=== PATIENT | female | born 1975 | race Asian ===

== ENCOUNTER 2016-03-18 07:32 | Inpatient (IN) | payer MEDICAID ==
[~2016-03-18] VITALS: Ht 154.9 cm; Wt 82.7 kg
[~2016-03-18 07:32] MED LIST: CALC60TA2 PO; FER325 PO; PREN1TAB62 PO
[2016-03-18 07:44] VITALS: Ht 154.9 cm; Wt 82.7 kg
[2016-03-18 07:46] VITALS: BP 127/58; PULSE 80; RESP 20
[2016-03-18 08:41] LABS: ADD UMIC YES; URINE BILIRUBIN (Dip) NEGATIVE (NEGATIVE); URINE BLOOD (Dip) 3+ (NEGATIVE); URINE COLOR LT. YELLOW (YELLOW); URINE GLUCOSE (Dip) NEGATIVE (NEGATIVE); URINE KETONES (Dip) NEGATIVE (NEGATIVE); URINE LEUKOCYTE ESTERASE (Dip) NEGATIVE (NEGATIVE); URINE NITRITE (Dip) NEGATIVE (NEGATIVE); URINE TOTAL PROTEIN (Dip) NEGATIVE (NEGATIVE); URINE UROBILINOGEN (Dip) 0.2 E.U./dL (0.1-1.0)
[2016-03-18 09:35] LABS: BACTERIA,URINE MODERATE
--- NOTE | 2016-03-18 10:32 | RADRPT ---
PROCEDURE: US OB. CLINICAL INDICATION: labor, bleeding TECHNIQUE: Multiple sonographic images of the pelvis were obtained. Transabdominal imaging was pe rformed. Transvaginal images were obtained to assess cervical length. The images were reviewed on a PACS workstation. COMPARISON: No prior studies are available for comparison. FINDINGS: There is a single viable intrauterine gestation. Cardiac activity is present with 150 beats per min yesenia. There is a breech presentation. The cervix is closed and measures 3.3 cm in length. Measurements were made in order to determine age. The results are as follows: BPD = 5.76 cm HC = 21.53 cm AC = 19.91 cm FL = 3.77 cm Gestational age is 23 weeks 3 days and SURINDER is 07/12/2016 by ultrasound criteria. EFW = 600 g +/- 90 g (90 %). The placenta is anterior. There is no evidence for an abruption or placenta previa. IMPRESSION: 1. Single live intrauterine gestation of approximately 23 weeks 3 days by ultrasound criteria. 2. Breech presentation. RPTAT: EE .Anant Oh MD, MD Date Time Electronically viewed and signed by .Anant Oh MD, MD on 03/18/2016 10:31 .R/
[2016-03-18] MEDS: LACTATED RINGER'S 1,000 ML IV* SCH ×2 (11:15→19:33)
[2016-03-18] MEDS ORDERED: TERBUTALINE 1 ML ONE (11:26)
[2016-03-18] MEDS ORDERED: TERBUTALINE 1 MG/ML INJ SC ONE (11:30)
[2016-03-18 12:11] LABS: BASOPHILS % 0.3 % (0.0-2.0); EOSINOPHILS # 0.2 10^3/ul (0.0-0.5); EOSINOPHILS % 1.5 % (0.0-7.0); HEMATOCRIT 37.5 % (37.0-47.0); HEMOGLOBIN 12.7 g/dl (12.0-16.0); LYMPHOCYTES # 1.6 10^3/ul (0.8-2.9); LYMPHOCYTES % 15.8 % (15.0-51.0); MEAN CORPUSCULAR HEMOGLOBIN 30.1 pg (29.0-33.0); MEAN CORPUSCULAR HGB CONC 33.9 g/dl (32.0-37.0); MEAN CORPUSCULAR VOLUME 88.6 fl (82.0-101.0); MEAN PLATELET VOLUME 8.1 fl (7.4-10.4); MONOCYTE # 0.7 10^3/ul (0.3-0.9); MONOCYTES % 7.3 % (0.0-11.0); NEUTROPHIL # 7.6 10^3/ul (1.6-7.5); NEUTROPHILS % 75.1 % (39.0-77.0); PLATELET COUNT 242 10^3/UL (140-440); RED BLOOD COUNT 4.23 10^6/ul (4.20-5.40); RED CELL DISTRIBUTION WIDTH 13.8 % (11.5-14.5); UNCORRECTED WBC 10.1 10^3/ul (4.8-10.8); WHITE BLOOD COUNT 10.1 10^3/ul (4.8-10.8)
[2016-03-18 12:14] LABS: INR 0.92; PROTIME 12.4 Sec (12.2-14.2)
[2016-03-18 12:15] LABS: PARTIAL THROMBOPLASTIN TIME 27.7 Sec (25.0-35.0)
[2016-03-18 12:16] LABS: CONDITION 1
[2016-03-18] MEDS ORDERED: CIPROFLOXACIN 400MG/D5W 200 ML IVPB ONE (12:30)
[2016-03-18] MEDS: NIFEdipine 10 MG CAP PO SCH ×3 (13:00→23:49)
--- NOTE | 2016-03-18 14:03 | TRIAGE ---
OB Triage Datetime Report Generated by CPN: 03/18/2016 14:03 Datetime: 03/18/2016 13:25 Assessment Type: Admission Assessment Maternal Assessment Level of Consciousness: Fully Conscious DTR's/Clonus: DTRs 2+; No Clonus Headache: Denies Blurred Vision: No Respiratory Effort: Unlabored; Regular Rhythm; Equal Expansion Breath Sounds, Left: Clear and Equal Breath Sounds, Right: Clear and Equal Nausea/Vomiting: Denies RUQ Epigastric Pain: Denies Lower Extremities Edema: None Upper Extremities Edema: None Facial Edema: None Fall Risk Assessment History of Falling: (0) No Secondary Diagnosis: (0) No Ambulatory Aid: (0) Bedrest/Nurse Assist IV Therapy: (20) Yes Gait: (0) Normal/Bedrest/Immobile Mental Status: (0) Oriented to Own Ability Fall Score: 20 Fall Risk Score Definition: No Risk: No action required Labor Evaluation Frequency: NONE NOTED Resting Tone [place]: Relaxed Pain Assessment Pain Scale: 0 Pain Presence: None/Denies Pain Type: N/A Pain Assessment Comments: PT STATES FEELING NO PAIN AT THIS TIME Membrane Status: Intact Datetime: 03/18/2016 12:30 Labor Evaluation Frequency: X4 Monitor Mode: External Duration (sec)2399: 40 Quality: Mild Pattern: Normal: <= 5 Contractions in 10 Minutes Resting Tone [place]: Relaxed Pain Assessment Pain Scale: 4 Pain Presence: Intermittent Pain Type: Cramping Pain Location: Back Pain Goal: 0 Pain Relief Measures: Comfort Measures Membrane Status: Intact Datetime: 03/18/2016 11:45 Stage of : Antepartum Assessment Type: Admission Assessment Vaginal Bleeding: Scant Maternal Assessment Level of Consciousness: Fully Conscious Headache: Generalized Blurred Vision: No Respiratory Effort: Unlabored; Regular Rhythm; Equal Expansion Nausea/Vomiting: Denies RUQ Epigastric Pain: Denies Lower Extremities Edema: None Degree: None Upper Extremities Edema: None Degree: None Facial Edema: None Fall Risk Assessment History of Falling: (0) No Secondary Diagnosis: (0) No Ambulatory Aid: (0) Bedrest/Nurse Assist IV Therapy: (0) No Gait: (0) Normal/Bedrest/Immobile Mental Status: (0) Oriented to Own Ability Fall Score: 0 Fall Risk Score Definition: No Risk: No action required Labor Evaluation Frequency: X5 Duration (sec)2399: 40 Quality: Mild Pattern: Normal: <= 5 Contractions in 10 Minutes Resting Tone [place]: Relaxed Pain Assessment Pain Scale: 4 Pain Presence: Intermittent Pain Type: Cramping Pain Location: Back Pain Goal: 0 Membrane Status: Intact Datetime: 03/18/2016 11:30 Labor Evaluation Frequency: IRRITABILITY Monitor Mode: External Duration (sec)2399: 30 Quality: Mild Pattern: Normal: <= 5 Contractions in 10 Minutes Resting Tone [place]: Relaxed Pain Assessment Pain Scale: 4 Pain Presence: Intermittent Pain Type: Cramping Pain Location: Back Pain Goal: 0 Pain Relief Measures: Comfort Measures Datetime: 03/18/2016 11:11 Vaginal Exam Dilatation (cms): 0.0 Station: -3 Exam By: MAY Datetime: 03/18/2016 10:30 Labor Evaluation Frequency: X4 Monitor Mode: External Duration (sec)2399: 40 Quality: Mild Pattern: Normal: <= 5 Contractions in 10 Minutes Resting Tone [place]: Relaxed Pain Assessment Pain Scale: 4 Pain Presence: Intermittent Pain Type: Cramping Pain Location: Back Pain Goal: 0 Pain Relief Measures: Comfort Measures Membrane Status: Intact Datetime: 03/18/2016 09:42 Labor Evaluation Frequency: X3 Duration (sec)2399: 40 Quality: Mild Pattern: Normal: <= 5 Contractions in 10 Minutes Resting Tone [place]: Relaxed Heart Rate FHR Baseline Rate: 140 Monitor Mode: External US FHR Baseline Changes: No Baseline Change Variability: Minimal - Undetectable to <=5 bpm Accelerations: 10X10 Decelerations: None Category: Category I Pain Assessment Pain Scale: 4 Pain Presence: Intermittent Pain Type: Cramping Pain Location: Back Pain Goal: 0 Pain Relief Measures: Comfort Measures Datetime: 03/18/2016 09:12 Labor Evaluation Frequency: IRRITABILITY Monitor Mode: External Duration (sec)2399: 20-40 Quality: Mild Pattern: Normal: <= 5 Contractions in 10 Minutes Resting Tone [place]: Relaxed Heart Rate FHR Baseline Rate: 140 Monitor Mode: External US FHR Baseline Changes: No Baseline Change Variability: Minimal - Undetectable to <=5 bpm Accelerations: 10X10 Decelerations: None Category: Category I Pain Assessment Pain Scale: 4 Pain Presence: Intermittent Pain Type: Cramping Pain Location: Back Pain Goal: 0 Pain Relief Measures: LINK CUTTER Use Datetime: 03/18/2016 08:42 Labor Evaluation Frequency: X2 Monitor Mode: External Duration (sec)2399: 40 Quality: Mild Pattern: Normal: <= 5 Contractions in 10 Minutes Resting Tone [place]: Relaxed Heart Rate FHR Baseline Rate: 140 Monitor Mode: External US FHR Baseline Changes: No Baseline Change Variability: Minimal - Undetectable to <=5 bpm Accelerations: 10X10 Decelerations: None Category: Category I Pain Assessment Pain Scale: 4 Pain Presence: Intermittent Pain Type: Cramping Pain Location: Back Pain Goal: 0 Pain Relief Measures: Comfort Measures Datetime: 03/18/2016 08:12 Labor Evaluation Frequency: 0 Heart Rate FHR Baseline Rate: 145 Monitor Mode: External US FHR Baseline Changes: No Baseline Change Variability: Minimal - Undetectable to <=5 bpm Accelerations: 10X10 Decelerations: None Category: Category I Pain Assessment Pain Scale: 4 Pain Presence: Intermittent Pain Type: Cramping Pain Location: Back Pain Goal: 0 Pain Relief Measures: Comfort Measures Datetime: 03/18/2016 07:51 Time of Arrival: 03/18/2016 11:20 EGA: 22.4 Arrived By: Wheelchair Arrived From: Other Unit in Hospital Datetime: 03/18/2016 07:45 Stage of : OB Triage Assessment Type: Admission Assessment Time of Arrival: 03/18/2016 07:32 Arrived By: Ambulatory Arrived From: Home Chief Complaint: LOW BACK PAIN SINCE YESTERDAY ON AND OFF, BLOOD WHEN SHE URINATES THIS MORNING Movement: Present Contractions: Irregular Time Contractions Began: 03/17/2016 16:00 Rupture of Membranes: Denies Vaginal Discharge: Present Recent Sexual Intercouse: Denies Abdominal Trauma: Not Applicable Patient Complaints: Other Time Provider Notified: 03/18/2016 08:11 Provider Notified: DR. NIETO Initial Plan: EFM, UA Maternal Assessment Level of Consciousness: Fully Conscious Headache: Denies Blurred Vision: No Respiratory Effort: Unlabored; Regular Rhythm; Equal Expansion Nausea/Vomiting: Denies RUQ Epigastric Pain: Denies Lower Extremities Edema: None Degree: None Upper Extremities Edema: None Degree: None Facial Edema: None Fall Risk Assessment History of Falling: (0) No Secondary Diagnosis: (0) No Ambulatory Aid: (0) Bedrest/Nurse Assist IV Therapy: (0) No Gait: (0) Normal/Bedrest/Immobile Mental Status: (0) Oriented to Own Ability Fall Score: 0 Fall Risk Score Definition: No Risk: No action required Monitor Mode: External Pain Assessment Pain Scale: 4 Pain Presence: Intermittent Pain Type: Cramping Pain Location: Back Pain Goal: 0 Pain Relief Measures: Comfort Measures Datetime: 03/18/2016 07:40 Monitor Mode: External Monitor Mode: External US Pain Assessment Pain Scale: 4 Pain Presence: Intermittent Pain Type: Cramping Pain Location: Back Pain Goal: 0 Pain Relief Measures: Comfort Measures
[2016-03-18] MEDS: INDOMETHACIN 25 MG PO SCH ×3 (14:05→23:49)
[2016-03-19] MEDS: LACTATED RINGER'S 1,000 ML IV* SCH ×2 (03:22→10:26)
[2016-03-19] MEDS: NIFEdipine 10 MG CAP PO SCH ×3 (06:04→18:02)
[2016-03-19] MEDS: INDOMETHACIN 25 MG PO SCH ×3 (06:04→18:02)
--- NOTE | 2016-03-19 19:36 | HP ---
Date/Time of Note Date/Time of Note DATE: 03/19/16 TIME: 19:32 OB - History Hx of Present Free Text/Dictation 41 y/o female admitted at 22+ weeks for vaginal bleeding and uterine cramps Last Menstrual Period: Oct 12, 2015 Estimated Due Date: July 18, 2016 : 3 Para: 2 Care: Good Care Ultrasounds: Normal mid trimester US Obstetrical Complications: None Medical Complications: Other (previous C/S X 2 ) Past Family/Social History * Past Medical, Surgical, Family and Obstetric Histories reviewed from chart. Blood Type: B+ Rubella: immune RPR/VDRL: Negative GBS Status: Unknown HBsAG: Negative OB Admission Exam Vital Signs Vital Signs Vital Signs Date Time Temp Pulse Resp B/P Pulse Ox O2 Delivery O2 Flow Rate FiO2 03/18/16 07:46 97.6 80 20 127/58 Room Air Physical Exam HEENT: WNL Heart: Rhythm Normal Lungs: Clear, Equal Abdomen: WNL Extremities: Normal Reflexes: Normal Cervical Dilatation: None Effacement: 0% Membranes: Intact Heart Rate: 150's Accelerations: No Accelerations Decelerations: No Decelerations Varibility: Minimum Contractions on Admission: 6-10 Minutes Apart Date/Time Contractions Began: ? Frequency of Contractions: ? Duration: ? Intensity: Mild Last 72 hours Lab Results CBC & BMP 03/18/16 11:00 OB Assessment/Plan Reason for admission: vaginal bleeding Other Assessment: 22 + weeks gestation Other plan: start on PO Nifedipine + Indocin PREETHI CASTELAN MD Mar 19, 2016 19:36
--- NOTE | 2016-03-19 19:38 | DS ---
Date/Time of Note Date/Time of Note DATE: 03/19/16 TIME: 19:36 Obstetrical Discharge Record Final Diagnosis Final Diagnosis: not delivered Other Final Diagnosis vaginal bleeding at 22 + weeks , possible labor Complications Other (2nd trimester bleeding and uterine cramps ) Condition on Discharge Physical Assessment Voiding: Yes Bowel Movement: Yes Breast: Soft, non-tender, Filling Fundus: Other (gravid ) Abdomen and Incision: gravid Episiotomy: NA Calf Tenderness: No Patient Condition: Good PREETHI CASTELAN MD Mar 19, 2016 19:38
--- NOTE | 2016-03-19 19:39 | QN ---
Documentation Comment patient with considerable decrease in vaginal bleeding: has stopped vaginal bleeding no more uterine cramps will D/C homr on PO nifedipine PREETHI CASTELAN MD Mar 19, 2016 19:39
--- NOTE | 2016-03-19 19:42 | PD.PPDC ---
BUSINESS MANAGEMENT SPECIALIST Discharge Instruction Provider Information Physician Information 41 y/o female admitted with vaginal bleeding and irregular uterine contractions symptoms resolved on PO nifedipine and Indocin Condition Patient Condition: Good Diet Diet: Resume Regular Diet Activity/Restrictions Activity: Bedrest May Shower Restrictions: No Exercising No Lifting Nothing in the Vagina Follow-up Follow-up with Physician: 1, Week/Weeks Return to clinic for Comment: uterine cramps and vaginal bleeding PREETHI CASTELAN MD Mar 19, 2016 19:42
[2016-03-19] MEDS ORDERED: NIFEdipine PO (19:43)
== END 2016-03-19 20:45 | disposition home or self-care (01) | DRG 778 ==
LOC: OBT 07:32 → L-D 07:33 → OBT 11:28 → L-D 11:29 → OBG 13:19
PROVIDERS: ADMIT Obstetrics & Gynecology; ATTEND Obstetrics & Gynecology
DX: O60.03 Preterm labor without delivery, third trimester (principal); O09.522 Supervision of elderly multigravida, second trimester; Z3A.21 21 weeks gestation of pregnancy
CPT/HCPCS: 76815; 76817; 81001; 81003; 85025; 85610; 85730; 86592; 86900; 86901; 96372; G0463; J0744; J3105; J7120

== ENCOUNTER 2016-06-12 19:08 | Outpatient (CLI) | payer MEDICAID ==
[~2016-06-12] VITALS: Ht 154.9 cm; Wt 89.1 kg
[~2016-06-12 19:08] MED LIST changes: -CALC60TA2 PO; -FER325 PO; +NIFEdipine PO
[2016-06-12 19:29] VITALS: Ht 154.9 cm; Wt 89.1 kg
[2016-06-12 19:30] VITALS: BP 139/64; PULSE 85; RESP 18
[2016-06-12 20:40] LABS: ADD SCAN DIFF NO
[2016-06-12 20:42] LABS: BASOPHILS % 0.1 % (0.0-2.0); EOSINOPHILS # 0.1 10^3/ul (0.0-0.5); EOSINOPHILS % 1.7 % (0.0-7.0); HEMATOCRIT 36.8 % (37.0-47.0); LYMPHOCYTES # 1.4 10^3/ul (0.8-2.9); LYMPHOCYTES % 19.7 % (15.0-51.0); MEAN CORPUSCULAR HEMOGLOBIN 29.6 pg (29.0-33.0); MEAN CORPUSCULAR HGB CONC 32.6 g/dl (32.0-37.0); MEAN CORPUSCULAR VOLUME 90.9 fl (82.0-101.0); MEAN PLATELET VOLUME 9.3 fl (7.4-10.4); MONOCYTE # 0.8 10^3/ul (0.3-0.9); MONOCYTES % 11.8 % (0.0-11.0); NEUTROPHIL # 4.5 10^3/ul (1.6-7.5); NEUTROPHILS % 65.3 % (39.0-77.0); PLATELET COUNT 233 10^3/UL (140-415); RED BLOOD COUNT 4.05 10^6/ul (4.20-5.40)
[2016-06-12 20:47] LABS: ADD UMIC YES; URINE BILIRUBIN (Dip) NEGATIVE (NEGATIVE); URINE BLOOD (Dip) TRACE (NEGATIVE); URINE COLOR LT. YELLOW (YELLOW); URINE GLUCOSE (Dip) NEGATIVE (NEGATIVE); URINE KETONES (Dip) NEGATIVE (NEGATIVE); URINE NITRITE (Dip) NEGATIVE (NEGATIVE); URINE TOTAL PROTEIN (Dip) TRACE (NEGATIVE); URINE UROBILINOGEN (Dip) 0.2 E.U./dL (0.1-1.0)
[2016-06-12 20:48] LABS: URINE LEUKOCYTE ESTERASE (Dip) NEGATIVE (NEGATIVE)
[2016-06-12 20:52] LABS: ALBUMIN 3.4 g/dl (3.3-4.9)
[2016-06-12 20:53] LABS: POTASSIUM 3.5 mmol/L (3.5-5.1)
[2016-06-12 20:55] LABS: ALBUMIN/GLOBULIN RATIO 1.03; BILIRUBIN,INDIRECT 0.2 mg/dl (0-1.1); BILIRUBIN,TOTAL 0.2 mg/dl (0.2-1.3); CREATININE 0.53 mg/dl (0.44-1.00); TOTAL PROTEIN 6.7 g/dl (6.1-8.1)
[2016-06-12 20:56] LABS: BACTERIA,URINE RARE; SQUAMOUS EPITHELIAL CELL,UR FEW; URINE RBCS 0-2 /HPF (0)
[2016-06-12 20:56] LABS: URIC ACID 5.4 mg/dl (3.1-7.9)
[2016-06-12 20:57] LABS: CALCIUM 9.1 mg/dl (8.4-10.2)
[2016-06-12 20:59] LABS: INR 0.96; PROTIME 12.8 Sec (12.2-14.2)
[2016-06-12 21:00] LABS: PARTIAL THROMBOPLASTIN TIME 26.4 Sec (25.0-35.0)
--- NOTE | 2016-06-12 21:54 | RADRPT ---
PROCEDURE: OB ultrasound for biophysical profile CLINICAL INDICATION: Biophysical profile. . Hypertension TECHNIQUE: Multiple sonographic images of the pelvis were obtained. Transabdominal view of the gr avid uterus are available for review. The images were reviewed on a PACS workstation. COMPARISON: 03/18/2016 FINDINGS: Single intrauterine gestation. Presentation: Cephalic. Partially visualized placenta: Anterior. breathing movement = 2/2 tone = 2/2 motion = 2/2 HUNTER = 2/2 HUNTER = 11.7 cm heart rate: 163 beats per minute IMPRESSION: Single intrauterine gestation. Biophysical profile 10/07 RPTAT: AADD .Shady Hay MD, MD Date Time Electronically viewed and signed by .Shady Hay MD, on 06/12/2016 21:54 .B/
--- NOTE | 2016-06-12 21:59 | RADRPT ---
PROCEDURE: Obstetrical ultrasound. CLINICAL INDICATION: , evaluation. Pelvic pain. TECHNIQUE: Transabdominal sonographic images of the pelvis are obtained. COMPARISON: 03/18/2016 a FINDINGS: Single intrauterine gestation. There is a cephalic presentation. Measurements were made in order to determine age. The results are as follows: BPD = 8.68 cm HC = 31.23 cm AC = 33.92 cm FL = 6.98 cm Heart rate = 150 beats per minute The placenta is anterior. There is no evidence for an abruption or placenta previa. Ovaries are not visualized. IMPRESSION: Single intrauterine gestation of approximately 36 weeks 0 days by ultrasound criteria. [place] estimated weight = 3006 g; 92 percentile for gestational age of 34 weeks 5 days. RPTAT: AADD .Shady Hay MD, Date Time Electronically viewed and signed by .Shady Hay MD, on 06/12/2016 21:59 .B/
[2016-06-12] MEDS ORDERED: TERBUTALINE 1 MG/ML INJ SC ONE (22:00)
[2016-06-12] MEDS: LACTATED RINGER'S 1,000 ML IV SCH ×3 (22:16→23:27)
--- NOTE | 2016-06-13 00:42 | PN ---
Date/Time of Note Date/Time of Note DATE: 06/13/16 TIME: 00:31 OB Subjective Subjective Subjective increse blood pressure at the clinic and left groin pain forPIH evaluation requested vy Dr SHORE ,NST EFW HUNTER CBC CMP U?A 41 y.o have 2yrs old OB Objective Objective Objective BP 139/64 138/62 PIH lab all WNL HUNTER 11.7 EFW over 3000gm U/A protein trace occ U.c OB Assessment/Plan Reason for admission: other Other Assessment: IUP 35w R/O PIH Other plan: d/s home with routine instructions f/u at clinic RT AMI Mathews MD Jun 13, 2016 00:41
--- NOTE | 2016-06-13 02:01 | TRIAGE ---
OB Triage Datetime Report Generated by CPN: 06/13/2016 02:00 Datetime: 06/13/2016 00:10 Stage of : OB Triage Datetime: 06/12/2016 23:46 Labor Evaluation Frequency: 0 Monitor Mode: External Heart Rate FHR Baseline Rate: 145 Monitor Mode: External US FHR Baseline Changes: No Baseline Change Variability: Moderate 6-25 bpm Accelerations: 15X15 Decelerations: None Category: Category I Datetime: 06/12/2016 23:38 Stage of : OB Triage Datetime: 06/12/2016 23:00 Labor Evaluation Frequency: IRREGULAR Monitor Mode: External Duration (sec)2399: 60-120 Quality: Mild Pattern: Normal: <= 5 Contractions in 10 Minutes Resting Tone [place]um [place]: Relaxed Heart Rate FHR Baseline Rate: 135 Monitor Mode: External US FHR Baseline Changes: No Baseline Change Variability: Moderate 6-25 bpm Accelerations: 15X15 Decelerations: None Category: Category I Datetime: 06/12/2016 22:00 Labor Evaluation Frequency: IRREGULAR Monitor Mode: External Duration (sec)2399: 120 Quality: Mild Pattern: Normal: <= 5 Contractions in 10 Minutes Resting [place]one [place]: Relaxed Heart Rate FHR Baseline Rate: 145 Monitor Mode: External US FHR Baseline Changes: No Baseline Change Variability: Moderate 6-25 bpm Accelerations: 15X15 Decelerations: None Category: Category I Datetime: 06/12/2016 21:00 Stage of : OB Triage Labor Evaluation Frequency: 1 Monitor Mode: External Duration (sec)2399: 100 Quality: Mild Pattern: Normal: <= 5 Contractions in 10 Minutes Resting [place]one [place]: Relaxed Heart Rate FHR Baseline Rate: 135 Monitor Mode: External US FHR Baseline Changes: No Baseline Change Variability: Moderate 6-25 bpm Accelerations: 15X15 Decelerations: None Category: Category I Datetime: 06/12/2016 20:00 Labor Evaluation Frequency: 1 Duration (sec)2399: 60 Pattern: Normal: <= 5 Contractions in 10 Minutes Resting [place]one [place]: Relaxed Heart Rate FHR Baseline Rate: 145 Monitor Mode: External US FHR Baseline Changes: No Baseline Change Variability: Moderate 6-25 bpm Accelerations: 15X15 Decelerations: None Category: Category I Datetime: 06/12/2016 19:36 Stage of : OB Triage Time of Arrival: 06/13/2016 19:05 EGA: 35.0 Arrived By: Wheelchair Arrived From: Office Chief Complaint: PIH SENT FROM THE OFFICE Movement: Present Contractions: Denies/Absent Rupture of Membranes: Denies Vaginal Bleeding: None Vaginal Discharge: Denies Recent Sexual Intercouse: Denies Abdominal Trauma: Not Applicable Patient Complaints: None Time Provider Notified: 06/13/2016 19:52 Provider Notified: DR SHORE Initial Plan: CALL MD [facility] Maternal Assessment Level of Consciousness: Fully Conscious DTR's/Clonus: DTRs 2+; No Clonus Headache: Denies Blurred Vision: No Respiratory Effort: Unlabored; Regular Rhythm; Equal Expansion Breath Sounds, Left: Clear and Equal Breath Sounds, Right: Clear and Equal Nausea/Vomiting: Denies RUQ Epigastric Pain: Denies Lower Extremities Edema: Bilateral Lower Extremities Degree: 1+ Upper Extremities Edema: None Degree: None Facial Edema: None Temperature Route: Oral Fall Risk Assessment History of Falling: (0) No Secondary Diagnosis: (0) No Ambulatory Aid: (0) Bedrest/Nurse Assist IV Therapy: (0) No Gait: (0) Normal/Bedrest/Immobile Mental Status: (0) Oriented to Own Ability Fall Score: 0 Fall Risk Score Definition: No Risk: No action required Monitor Mode: External Monitor Mode: External US Pain Assessment Pain Scale: 6 Pain Presence: Constant Pain Location: Left Groin Datetime: 03/19/2016 20:08 Contraction Comments: TOCO OFF. Datetime: 03/19/2016 20:05 Contraction Comments: DENIES FEELING ANY CRAMPING Monitor Mode: Doppler Comments: FHT HEARD VIA DOPPLER. FHT RANGES 137-155. Datetime: 03/19/2016 20:00 Labor Evaluation Frequency: NONE Monitor Mode: External Contraction Comments: IRRITABILITY NOTED W/ MOVEMENTS Datetime: 03/19/2016 19:58 Assessment Type: Ongoing Assessment Maternal Assessment Level of Consciousness: Fully Conscious DTR's/Clonus: DTRs 2+; No Clonus Headache: Denies Blurred Vision: No Respiratory Effort: Unlabored; Regular Rhythm; Equal Expansion Breath Sounds, Left: Clear and Equal Breath Sounds, Right: Clear and Equal Nausea/Vomiting: Denies RUQ Epigastric Pain: Denies Lower Extremities Edema: None Degree: None Upper Extremities Edema: None Degree: None Facial Edema: None Temperature Route: Oral Fall Risk Assessment History of Falling: (0) No Secondary Diagnosis: (0) No Ambulatory Aid: (0) Bedrest/Nurse Assist IV Therapy: (0) No Gait: (0) Normal/Bedrest/Immobile Mental Status: (0) Oriented to Own Ability Fall Score: 0 Fall Risk Score Definition: No Risk: No action required Pain Assessment Pain Scale: 0 Pain Presence: None/Denies Pain Type: N/A Pain Goal: 0 Pain Assessment Comments: PT DENIES FEELING OF ANY PAIN AT THIS TIME Datetime: 03/19/2016 19:00 Labor Evaluation Frequency: NONE Monitor Mode: External Pattern: Normal: <= 5 Contractions in 10 Minutes Resting Tone [place]: Relaxed Datetime: 03/19/2016 18:02 Labor Evaluation Frequency: NONE Monitor Mode: External Pattern: Normal: <= 5 Contractions in 10 Minutes Resting [place]one [place]: Relaxed Datetime: 03/19/2016 17:00 Labor Evaluation Frequency: NONE Monitor Mode: External Pattern: Normal: <= 5 Contractions in 10 Minutes Resting [place]one [place]: Relaxed Datetime: 03/19/2016 16:07 Monitor Mode: Doppler Comments: FTH HEARD VIA DOPPLER. HEART RATE 145-155 Datetime: 03/19/2016 16:00 Labor Evaluation Frequency: NONE Monitor Mode: External Pattern: Normal: <= 5 Contractions in 10 Minutes Resting [place]one [place]: Relaxed Datetime: 03/19/2016 15:00 Labor Evaluation Frequency: NONE Monitor Mode: External Pattern: Normal: <= 5 Contractions in 10 Minutes Resting [place]one [place]: Relaxed Datetime: 03/19/2016 14:00 Labor Evaluation Frequency: NONE Monitor Mode: External Pattern: Normal: <= 5 Contractions in 10 Minutes Resting [place]one [place]: Relaxed Datetime: 03/19/2016 12:56 Labor Evaluation Frequency: NONE Monitor Mode: External Pattern: Normal: <= 5 Contractions in 10 Minutes Resting [place]one [place]: Relaxed Datetime: 03/19/2016 12:00 Labor Evaluation Frequency: NONE Monitor Mode: External Pattern: Normal: <= 5 Contractions in 10 Minutes Resting [place]one [place]: Relaxed Datetime: 03/19/2016 11:00 Labor Evaluation Frequency: NONE Monitor Mode: External Pattern: Normal: <= 5 Contractions in 10 Minutes Resting [place]one [place]: Relaxed Datetime: 03/19/2016 10:00 Labor Evaluation Frequency: NONE Monitor Mode: External Pattern: Normal: <= 5 Contractions in 10 Minutes Resting [place]one [place]: Relaxed Contraction Comments: PT DENIES FEELING UC'S, CRAMPING OR ABDOMINAL PAIN Datetime: 03/19/2016 09:00 Labor Evaluation Frequency: NONE Monitor Mode: External Pattern: Normal: <= 5 Contractions in 10 Minutes Resting [place]one [place]: Relaxed Datetime: 03/19/2016 08:00 Labor Evaluation Frequency: NONE Monitor Mode: External Pattern: Normal: <= 5 Contractions in 10 Minutes Resting [place]one [place]: Relaxed Datetime: 03/19/2016 06:59 Stage of : Antepartum Labor Evaluation Frequency: 0 Monitor Mode: External Duration (sec)2399: 0 Pattern: Normal: <= 5 Contractions in 10 Minutes Resting [place]one [place]: Relaxed Pain Assessment Pain Scale: 0 Pain Presence: None/Denies Pain Type: N/A Pain Goal: 0 Datetime: 03/19/2016 06:03 Stage of : Antepartum Labor Evaluation Frequency: 0 Monitor Mode: External Duration (sec)2399: 0 Pattern: Normal: <= 5 Contractions in 10 Minutes Resting [place]one [place]: Relaxed Contraction Comments: pt. denies feeling any cramping or UC's. Comments: FHT via doppler. 131-153 bpm Pain Assessment Pain Scale: 0 Pain Presence: None/Denies Pain Type: N/A Pain Goal: 0 Datetime: 03/19/2016 04:00 Labor Evaluation Frequency: 0 Monitor Mode: External Duration (sec)2399: 0 Pattern: Normal: <= 5 Contractions in 10 Minutes Resting [place]one [place]: Relaxed Datetime: 03/19/2016 03:00 Stage of : Antepartum Labor Evaluation Frequency: 0 Monitor Mode: External Duration (sec)2399: 0 Pattern: Normal: <= 5 Contractions in 10 Minutes Resting [place]one [place]: Relaxed Pain Presence: None/Denies Pain Type: N/A Datetime: 03/19/2016 02:00 Stage of : Antepartum Labor Evaluation Frequency: 0 Monitor Mode: External Duration (sec)2399: 0 Pattern: Normal: <= 5 Contractions in 10 Minutes Resting [place]: Relaxed Datetime: 03/19/2016 01:00 Labor Evaluation Frequency: 0 Monitor Mode: External Duration (sec)2399: 0 Pattern: Normal: <= 5 Contractions in 10 Minutes Resting [place]one [place]: Relaxed Pain Assessment Pain Scale: 0 Pain Presence: None/Denies Pain Type: N/A Pain Goal: 0 Datetime: 03/19/2016 00:00 Labor Evaluation Frequency: 0 Monitor Mode: External Duration (sec)2399: 0 Pattern: Normal: <= 5 Contractions in 10 Minutes Resting [place]one [place]: Relaxed Pain Presence: None/Denies Pain Type: N/A Datetime: 03/18/2016 23:48 Pain Presence: None/Denies Pain Type: N/A Datetime: 03/18/2016 23:00 Stage of : Antepartum Labor Evaluation Frequency: 0 Monitor Mode: External Duration (sec)2399: 0 Pattern: Normal: <= 5 Contractions in 10 Minutes Resting [place]one [place]: Relaxed Contraction Comments: uterine irritiability noted. pt. denies feelings any cramping. Pain Presence: None/Denies Pain Type: N/A Datetime: 03/18/2016 22:00 Labor Evaluation Frequency: 0 Monitor Mode: External Duration (sec)2399: 0 Pattern: Normal: <= 5 Contractions in 10 Minutes Resting [place]one [place]: Relaxed Pain Presence: None/Denies Pain Type: N/A Datetime: 03/18/2016 21:00 Labor Evaluation Frequency: 0 Monitor Mode: External Duration (sec)2399: 0 Pattern: Normal: <= 5 Contractions in 10 Minutes Resting [place]one [place]: Relaxed Contraction Comments: pt. denies feeling UC's or cramping. Datetime: 03/18/2016 20:00 Stage of : Antepartum Labor Evaluation Frequency: 0 Monitor Mode: External Duration (sec)2399: 0 Resting Tone [place]: Relaxed Contraction Comments: pt. denies feeling cramping or UC's at this time. Pain Presence: None/Denies Pain Type: N/A Datetime: 03/18/2016 19:23 Assessment Type: Ongoing Assessment Maternal Assessment Level of Consciousness: Fully Conscious DTR's/Clonus: DTRs 2+; No Clonus Headache: Denies Blurred Vision: No Respiratory Effort: Unlabored Nausea/Vomiting: Denies RUQ Epigastric Pain: Denies Lower Extremities Edema: None Degree: None Upper Extremities Edema: None Degree: None Facial Edema: None Fall Risk Assessment History of Falling: (0) No Secondary Diagnosis: (0) No Ambulatory Aid: (0) Bedrest/Nurse Assist IV Therapy: (20) Yes Gait: (0) Normal/Bedrest/Immobile Mental Status: (0) Oriented to Own Ability Fall Score: 20 Fall Risk Score Definition: No Risk: No action required Datetime: 03/18/2016 19:00 Stage of : Antepartum Labor Evaluation Frequency: none noted Monitor Mode: External Resting Tone [place]: Relaxed Pain Presence: None/Denies Datetime: 03/18/2016 18:13 Stage of : Antepartum Labor Evaluation Frequency: none noted Monitor Mode: External Resting Tone [place]: Relaxed Pain Presence: None/Denies Datetime: 03/18/2016 17:00 Stage of : Antepartum Labor Evaluation Frequency: none noted Monitor Mode: External Resting Tone [place]: Relaxed Contraction Comments: pt denies feeling any ucs Pain Presence: None/Denies Datetime: 03/18/2016 16:02 Stage of : Antepartum Labor Evaluation Frequency: x1 Monitor Mode: External Duration (sec)2399: 50 Quality: Mild Pattern: Normal: <= 5 Contractions in 10 Minutes Resting [place]: Relaxed Pain Presence: None/Denies Datetime: 03/18/2016 15:00 Stage of : Antepartum Labor Evaluation Frequency: none noted Monitor Mode: External Resting Tone [place]: Relaxed Pain Assessment Pain Scale: 0 Pain Presence: None/Denies Pain Type: N/A Datetime: 03/18/2016 14:27 Vaginal Exam Amniotic Fluid Amount: Scant Datetime: 03/18/2016 14:07 Stage of : Antepartum Labor Evaluation Frequency: occ Monitor Mode: External Duration (sec)2399: 40-50 Quality: Mild Pattern: Normal: <= 5 Contractions in 10 Minutes Resting [place]one [place]: Relaxed Pain Assessment Pain Scale: 0 Pain Presence: None/Denies Pain Type: N/A Datetime: 03/18/2016 13:25 Fall Score: 20 Fall Risk Score Definition: No Risk: No action required Datetime: 03/18/2016 11:45 Fall Score: 0 Fall Risk Score Definition: No Risk: No action required Datetime: 03/18/2016 07:51 EGA: 22.4 Datetime: 03/18/2016 07:45 Fall Score: 0 Fall Risk Score Definition: No Risk: No action required
[2016-06-13] MEDS ORDERED: LACTATED RINGER'S 1,000 ML IV SCH (22:56)
== END 2016-06-13 00:15 | disposition home or self-care (01) ==
LOC: OBT 19:08 → L-D 19:08 → OBT 06-13 00:15
PROVIDERS: ATTEND Obstetrics & Gynecology
DX: O26.893 Other specified pregnancy related conditions, third trimester (principal); R03.0 Elevated blood-pressure reading, without diagnosis of hypertension; O09.523 Supervision of elderly multigravida, third trimester; Z3A.35 35 weeks gestation of pregnancy
CPT/HCPCS: 36415; 76815; 76818; 80053; 81001; 84560; 85025; 85384; 85610; 85730; 96372; J3105; J7120; Z7500; 81003; G0463

== ENCOUNTER 2016-07-05 08:22 | Inpatient (IN) | payer MEDICAID ==
[~2016-07-05] VITALS: Ht 154.9 cm; Wt 90.5 kg
[~2016-07-05 08:22] MED LIST changes: -NIFEdipine PO
[2016-07-05 09:00] VITALS: BP 143/77; PULSE 76; Ht 154.9 cm; Wt 90.5 kg
[2016-07-05] MEDS ORDERED: CARBOPROST 250 MCG INJ IM PRN ×2 (10:30→21:00)
[2016-07-05] MEDS ORDERED: METHYLERGONOVINE 0.2 MG INJ IM PRN ×2 (10:30→21:00)
[2016-07-05] MEDS ORDERED: MISOPROSTOL 200 MCG TAB PR PRN ×2 (10:30→21:00)
[2016-07-05] MEDS ORDERED: OXYTOCIN 30 UNITS/LR 500 ML IV PRN ×2 (10:30→21:00)
[2016-07-05] MEDS ORDERED: CLINDAMYCIN 900 MG/D5W (PMX) 50 ML IVPB SCH (11:00)
[2016-07-05] MEDS: LACTATED RINGER'S 1,000 ML IV SCH ×3 (11:00→22:04)
[2016-07-05 11:05] LABS: ADD SCAN DIFF NO
[2016-07-05 11:07] LABS: BASOPHILS % 0.1 % (0.0-2.0); EOSINOPHILS # 0.1 10^3/ul (0.0-0.5); EOSINOPHILS % 1.4 % (0.0-7.0); HEMATOCRIT 36.8 % (37.0-47.0); HEMOGLOBIN 12.4 g/dl (12.0-16.0); LYMPHOCYTES # 1.3 10^3/ul (0.8-2.9); LYMPHOCYTES % 19.3 % (15.0-51.0); MEAN CORPUSCULAR HEMOGLOBIN 30.1 pg (29.0-33.0); MEAN CORPUSCULAR HGB CONC 33.7 g/dl (32.0-37.0); MEAN CORPUSCULAR VOLUME 89.3 fl (82.0-101.0); MEAN PLATELET VOLUME 9.5 fl (7.4-10.4); MONOCYTE # 0.8 10^3/ul (0.3-0.9); MONOCYTES % 10.9 % (0.0-11.0); NEUTROPHIL # 4.7 10^3/ul (1.6-7.5); NEUTROPHILS % 67.7 % (39.0-77.0); PLATELET COUNT 214 10^3/UL (140-415); RED BLOOD COUNT 4.12 10^6/ul (4.20-5.40); RED CELL DISTRIBUTION WIDTH 13.9 % (11.5-14.5)
[2016-07-05 11:24] LABS: INR 0.97; PARTIAL THROMBOPLASTIN TIME 27.1 Sec (25.0-35.0); PROTIME 12.9 Sec (12.2-14.2)
[2016-07-05] MEDS: CLINDAMYCIN 900 MG/D5W (PMX) 50 ML IV SCH ×2 (14:44→19:19)
[2016-07-05] MEDS ORDERED: CITRIC ACID/NA CITRATE 30 ML CUP ONE (15:11)
[2016-07-05] MEDS ORDERED: morphine SULFATE/PF (10 MG/10 ML) INJ ONE (15:15)
[2016-07-05] MEDS ORDERED: FENTAnyl 50 MCG/ML VIAL ONE (15:16)
[2016-07-05] MEDS ORDERED: DEXAMETHASONE 4 MG/ML 1 ML INJ ONE (15:20)
[2016-07-05] MEDS ORDERED: ONDANSETRON 4 MG INJ ONE (15:20)
[2016-07-05] MEDS ORDERED: CITRIC ACID/SODIUM CITRATE 15 ML CUP PO ONE (15:30)
[2016-07-05] MEDS ORDERED: CITRIC ACID/NA CITRATE 30 ML CUP PO ONE (15:30)
[2016-07-05] MEDS ORDERED: PHENYLephrine (100 MCG/ML) 5ML SYG ONE (15:53)
[2016-07-05] MEDS ORDERED: DIPHENHYDRAMINE 50 MG INJ IV PRN (16:00)
[2016-07-05] MEDS ORDERED: KETOROLAC 30 MG INJ IV PRN (16:00)
[2016-07-05] MEDS ORDERED: ZOLPIDEM 5 MG TAB PO PRN (16:00)
[2016-07-05] MEDS ORDERED: HYDROmorphONE 1 MG/ML SYG IV PRN ×2 (16:00)
[2016-07-05] MEDS ORDERED: NALOXONE (0.4 MG/ML) INJ IV PRN (16:00)
[2016-07-05] MEDS ORDERED: ONDANSETRON 4 MG INJ IV PRN (16:00)
[2016-07-05] MEDS ORDERED: GENTAMICIN 80 MG/NS (PMX) 50 ML IVPB SCH (16:30)
[2016-07-05] MEDS ORDERED: GENTAMICIN 80 MG INJ IM ONE (16:30)
[2016-07-05] MEDS ORDERED: OXYTOCIN 30 UNITS/LR 500 ML IV ONE ×2 (17:29→20:30)
--- NOTE | 2016-07-05 17:59 | HP ---
Date/Time of Note Date/Time of Note DATE: 07/05/16 TIME: 17:55 OB - History Hx of Present Free Text/Dictation admitted with onset of labor in AM at 38 weeks with Hx of 2 X previous C/S Last Menstrual Period: Oct 12, 2015 Estimated Due Date: July 18, 2016 : 3 Para: 2 Care: Good Care Ultrasounds: Normal mid trimester US Obstetrical Complications: None Medical Complications: None Past Family/Social History * Past Medical, Surgical, Family and Obstetric Histories reviewed from chart. Blood Type: B+ Rubella: immune RPR/VDRL: Negative GBS Status: Negative HBsAG: Negative OB Admission Exam Vital Signs Vital Signs Vital Signs Date Time Temp Pulse Resp B/P Pulse Ox O2 Delivery O2 Flow Rate FiO2 07/05/16 09:00 98.1 76 143/77 Physical Exam HEENT: WNL Heart: Rhythm Normal Lungs: Clear, Equal Abdomen: WNL Extremities: Normal Reflexes: Normal Cervical Dilatation: None Effacement: 0% Station: -3 Membranes: Intact Heart Rate: 130's Accelerations: Accelerations Present Decelerations: No Decelerations Varibility: Moderate Contractions on Admission: < 5 Minutes Apart Date/Time Contractions Began: 07/05/16 0800 AM Frequency of Contractions: q 5 min. Duration: >60 seconds Intensity: Mild Last 72 hours Lab Results CBC & BMP 07/05/16 10:50 OB Assessment/Plan Reason for admission: section Other Assessment: Term gestation previous C/S X 2 desires sterilization Other plan: Repeat C/S + BTL PREETHI CASTELAN MD July 05, 2016 17:59
--- NOTE | 2016-07-05 18:04 | OPR ---
Operative Report Planned Procedure Procedure date July 05, 2016 Procedure(s) reepat C/S + BTL Performed by: PREETHI CASTELAN MD Assisting provider: ERICH CHIU MD Anesthesiologist: NILDA WRIGHT Pre-procedure diagnosis term gestation previous C/S X 2 desires sterilization Anesthesia Type: spinal Procedure Description Under satisfactory anaesthesia a Pfannenstiel incision was made two fingerbreadth above and parallel to the symphysis of pubis around the previous scar and previous scar was removed Incision was extended laterally to the border of the Recti muscles on either sides. Incision was carried down with sharp and blunt dissection until fascia was reached. Anterior Recti muscle fascia was incised in mid portion and incision extended laterally to the border of skin incision. Fascia was mobilized from muscle superiorly and Recti muscles were from midline using sharp and blunt dissection. Peritoneum was visualized; Avoiding bowel and bladder it was incised . Incision was extended superiorly and inferiorly. Bladder blade was placed. Posterior peritoneum covering the lower segment of the uterus and lower segment of the uterus were incised.Low transverse uterine incision was made on lower segment of the uterus. Incision extended laterally to the border of Round Lig. on either sides and baby was delivered from OT. position . Amniotic fluid appeared clear. Cord blood was obtained and cord had 3 vessels . Placenta was delivered spontaneously and appeared intact and complete. Intrauterine cavity was rubbed with a laparotomy sponge. Uterine incision was closed in 2 layers using running stitches of No1 Monocryl. Hemostasis appeared secure. Ovaries and Fallopian tubes were within normal limits. Bilateral Tubal Ligation was performed by following procedure: R fallopian tube was raised in mid portion; a Carmela clamp was placed below the fimbriae extending to proximal portion of the fallopian tube. Another clamp was placed parallel to the first and after incising the fallopian tube the stump was sutured using 0 Vicryl stitch. Hemostasis was secure . Same procedure was done on fallopian tube on the opposite side. Hemostasis appeared to be secure on ligated sites of either fallopian tubes. 2 X broad ligament hematoma were repaired with combination of fesw stitches including 0 Vicryl, 2 0 Vicryl and 0 Chromic. Hemostasis became secure. Announcing needle, lap sponge and instrument count to be correct abdomen was closed in layers as follows: Peritoneum and Recti muscles with running stitches of 20 Vicryl. Fascia with running stitch of No 1 PDS. Subcutaneous tissue with running stitches of 20 Chromic and skin was closed using mingo. Patient tolerated the procedure well and was transferred to [facility] in good condition. Post-Procedure Post-procedure diagnosis S/P C/S + BTL Findings: Live Baby normal R and L fallopian tubes Specimen removed: Yes Specimen description segments of R and L fallopian tubes Complications: None Pt Condition post procedure: stable Disposition: PACU Physician Certification I, the undersigned physician, hereby certify that I have discussed the procedure described in this consent form with this patient (or the patient's legal safety representative), including: * The risk and benefits of the procedure; * Any adverse reactions that may reasonably be expected to occur; * Any alternative efficacious methods of treatment which may be medically viable ; * The potential problems that may occur during recuperation; * Potential for blood transfusion and associated risks/benefits; and * Any research or economic interest I may have regarding this treatment. I further certify that the patient/legally responsible person was encouraged to ask question and that all questions were answered. PREETHI CASTELAN MD July 05, 2016 18:04
[2016-07-05] MEDS ORDERED: NA PHOSPHATE/BIPHOS 133 ML ENEMA PR PRN ×2 (21:00→21:30)
[2016-07-05] MEDS ORDERED: ACETAMINOPHEN/CODEINE #3 TAB PO PRN (21:00)
[2016-07-05] MEDS ORDERED: LANOLIN 7 GM TUBE TOP PRN (21:00)
[2016-07-05 21:15] VITALS: BP 140/64; PULSE 80; RESP 18
[2016-07-05 21:30] VITALS: BP 132/78; PULSE 78; RESP 19
[2016-07-05] MEDS: GENTAMICIN 80 MG/NS (PMX) 50 ML IVPB SCH (21:59)
[2016-07-05 22:00] VITALS: BP 130/76; PULSE 80; RESP 18
[2016-07-05] MEDS: IBUPROFEN 800 MG TAB PO SCH (22:00)
[2016-07-05] MEDS: SENNA/DOCUSATE NA (8.6MG/50MG) TAB PO SCH (22:04)
[2016-07-05 23:00] VITALS: BP 126/78; PULSE 78; RESP 18
[2016-07-06] MEDS: CLINDAMYCIN 900 MG/D5W (PMX) 50 ML IVPB SCH ×5 (00:30→23:49)
[2016-07-06 01:10] VITALS: BP 120/60; PULSE 80; RESP 18
[2016-07-06] MEDS: LACTATED RINGER'S 1,000 ML IV SCH ×6 (01:28→23:00)
[2016-07-06 04:50] VITALS: BP 130/78; PULSE 78; RESP 18
[2016-07-06] MEDS: GENTAMICIN 80 MG/NS (PMX) 50 ML IVPB SCH ×3 (05:07→21:46)
[2016-07-06] MEDS: IBUPROFEN 800 MG TAB PO SCH ×3 (06:00→22:00)
[2016-07-06] MEDS ORDERED: MISOPROSTOL 200 MCG TAB PR PRN (07:00)
[2016-07-06] MEDS ORDERED: METHYLERGONOVINE 0.2 MG INJ IM PRN (07:00)
[2016-07-06] MEDS ORDERED: HYDROmorphONE 1 MG/ML SYG IV PRN ×3 (07:00→07:30)
[2016-07-06] MEDS ORDERED: KETOROLAC 30 MG INJ IV PRN ×2 (07:00→07:30)
[2016-07-06] MEDS ORDERED: OXYTOCIN 30 UNITS/LR 500 ML IV PRN (07:00)
[2016-07-06] MEDS ORDERED: NALOXONE (0.4 MG/ML) INJ IV PRN (07:30)
[2016-07-06] MEDS ORDERED: DIPHENHYDRAMINE 50 MG INJ IV PRN (07:30)
[2016-07-06] MEDS ORDERED: ONDANSETRON 4 MG INJ IV PRN (07:30)
[2016-07-06] MEDS ORDERED: ZOLPIDEM 5 MG TAB PO PRN (07:30)
[2016-07-06 08:00] LABS: ADD SCAN DIFF NO
[2016-07-06 08:10] LABS: BASOPHILS % 0.2 % (0.0-2.0); EOSINOPHILS % 0.4 % (0.0-7.0); HEMATOCRIT 26.2 % (37.0-47.0); HEMOGLOBIN 8.5 g/dl (12.0-16.0); LYMPHOCYTES # 1.5 10^3/ul (0.8-2.9); LYMPHOCYTES % 14.1 % (15.0-51.0); MEAN CORPUSCULAR HEMOGLOBIN 29.4 pg (29.0-33.0); MEAN CORPUSCULAR HGB CONC 32.4 g/dl (32.0-37.0); MEAN CORPUSCULAR VOLUME 90.7 fl (82.0-101.0); MEAN PLATELET VOLUME 9.9 fl (7.4-10.4); MONOCYTE # 1.3 10^3/ul (0.3-0.9); MONOCYTES % 12.7 % (0.0-11.0); NEUTROPHIL # 7.5 10^3/ul (1.6-7.5); NEUTROPHILS % 71.8 % (39.0-77.0); PLATELET COUNT 183 10^3/UL (140-415); RED BLOOD COUNT 2.89 10^6/ul (4.20-5.40); RED CELL DISTRIBUTION WIDTH 13.7 % (11.5-14.5); WHITE BLOOD COUNT 10.4 10^3/ul (4.8-10.8)
[2016-07-06 08:30] VITALS: BP 127/54; PULSE 73; RESP 14
[2016-07-06] MEDS ORDERED: BISACODYL 10 MG SUPP PR ONE (10:00)
[2016-07-06] MEDS: SENNA/DOCUSATE NA (8.6MG/50MG) TAB PO SCH ×2 (10:11→21:47)
[2016-07-06 11:57] VITALS: BP 126/66; PULSE 80; RESP 16
[2016-07-06 16:58] VITALS: BP 127/56; PULSE 89; RESP 14
[2016-07-06 20:00] VITALS: BP 131/60; PULSE 20; RESP 20
--- NOTE | 2016-07-06 21:32 | PN ---
Date/Time of Note Date/Time of Note DATE: 07/06/16 TIME: 21:29 Assessment/Plan VTE Prophylaxis VTE Prophylaxis Intervention: ambulation Lines/Catheters IV Catheter Type (from Nrsg): Peripheral IV Assessment/Plan Assessment/Plan S/P C/S + BTL POD#1 will advance diet and ambulate Subjective 24 Hr Interval Summary No BM Passing flatus Constitutional: BM, ambulates, flatus, improved, no complaints, urine output Pain Control: well controlled Exam/Review of Systems Vital Signs Vitals Vital Signs Date Time Temp Pulse Resp B/P Pulse Ox O2 Delivery O2 Flow Rate FiO2 07/06/16 16:58 98.2 89 14 127/56 Room Air 07/06/16 13:45 97 21 Intake and Output 07/05/16 07/05/16 07/06/16 15:00 23:00 07:00 Intake Total 225 ml 850 ml Output Total 1677 ml 700 ml Balance -1452 ml 150 ml Exam Free Text/Dictation abdomen: soft BS + incision: covered HCT decreased will recheck Constitutional: alert, oriented, well developed Psych: nl mood/affect, no complaints Head: atraumatic, normocephalic Eyes: EOMI, nl conjunctiva, nl lids, nl sclera ENMT: mucosa pink and moist, nl external ears & nose, nl lips & teeth, nl nasal mucosa & septum Neck: non-tender, supple Respiratory: clear to auscultation, normal air movement Cardiovascular: nl pulses, regular rate and rhythm Gastrointestinal: nl liver, spleen, non-tender, soft Musculoskeletal: nl extremities to inspection, nl gait and stance Extremities: normal pulses 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
[2016-07-06] MEDS ORDERED: BISACODYL 10 MG SUPP PR SCH (23:45)
[2016-07-07 03:50] VITALS: BP 120/60; PULSE 80; RESP 18
[2016-07-07] MEDS: GENTAMICIN 80 MG/NS (PMX) 50 ML IVPB SCH (04:51)
[2016-07-07] MEDS: LACTATED RINGER'S 1,000 ML IV SCH (05:00)
[2016-07-07] MEDS: IBUPROFEN 800 MG TAB PO SCH ×3 (05:34→21:41)
[2016-07-07] MEDS: CLINDAMYCIN 900 MG/D5W (PMX) 50 ML IVPB SCH (05:34)
[2016-07-07 07:34] LABS: HEMATOCRIT 23.1 % (37.0-47.0); HEMOGLOBIN 7.9 g/dl (12.0-16.0)
[2016-07-07 08:40] VITALS: BP 125/64; PULSE 62; RESP 19
[2016-07-07] MEDS: SENNA/DOCUSATE NA (8.6MG/50MG) TAB PO SCH ×2 (10:47→21:00)
[2016-07-07] MEDS: OXYCODONE/ACETAMINOPHEN (5/325) TAB PO PRN (10:47)
[2016-07-07 15:40] VITALS: BP 134/65; PULSE 99; RESP 18
--- NOTE | 2016-07-07 18:06 | DS ---
Date/Time of Note Date/Time of Note home next day DATE: 07/07/16 TIME: 18:04 Obstetrical Discharge Record Final Diagnosis Final Diagnosis: Term delivered Other Final Diagnosis S/P C/S + BTL Vaginal Delivery Obstetrical Delivery: Bilateral Tubal Ligation Section Section: Repeat Condition on Discharge Physical Assessment Last Vitals: see nurses notes Voiding: Yes Bowel Movement: Yes Breast: Soft, non-tender, Filling Fundus: Firm Abdomen and Incision: soft BS + Incision: healing well Episiotomy: NA Calf Tenderness: No Patient Condition: Good PREETHI CASTELAN MD July 07, 2016 18:06
--- NOTE | 2016-07-07 18:08 | DS ---
Date/Time of Note Date/Time of Note home next day DATE: 07/07/16 TIME: 18:06 Discharge Summary Admission/Discharge Info Admit Date/Time July 05, 2016 at 10:40 Discharge Date/Time 07/08/2016 Final Diagnosis S/P C/S + BTL Patient Condition: Good Procedures repeat C/S + BTL Hx of Present Illness 41 y/o female had repeat C/S + BTL Hospital Course uncomplicated Home Meds Reported Medications Vit-Iron Fumarate-FA ( Vitamin Tablet) 1 Each Tablet, 1 TAB PO AM, TAB 02/07/14 Follow-up Plan 2 days in clinic for staple removal Pending Labs Laboratory Tests Test 07/07/16 06:45 Hemoglobin 7.9g/dl (12.0-16.0) Hematocrit 23.1% (37.0-47.0) Hepatitis B Surface Antigen NEGATIVE (NEGATIVE) PREETHI CASTELAN MD July 07, 2016 18:08
--- NOTE | 2016-07-07 18:09 | PD.PPDC ---
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
[2016-07-07] MEDS ORDERED: Oxycodone/Acetamin (5/325) PO (18:11)
[2016-07-07] MEDS ORDERED: IBUP800T25 PO (18:11)
[2016-07-07 20:20] VITALS: BP 132/61; PULSE 68; RESP 18
[2016-07-08] MEDS: OXYCODONE/ACETAMINOPHEN (5/325) TAB PO PRN ×2 (02:24→10:39)
[2016-07-08 04:00] VITALS: BP_SYST 116; BP_SYST 135; BP_DIAS 63; BP_DIAS 76; PULSE 59; PULSE 86; RESP 18
[2016-07-08] MEDS: CLINDAMYCIN 300 MG CAP PO SCH ×2 (05:51→12:39)
[2016-07-08] MEDS: IBUPROFEN 800 MG TAB PO SCH ×2 (05:51→14:52)
[2016-07-08 08:00] VITALS: BP 138/60; PULSE 52; RESP 17
[2016-07-08] MEDS ORDERED: DIPHTH/TET/ACEL PERTUSS (ADULT) 0.5 ML VIAL IM* ONE (09:00)
[2016-07-08] MEDS: SENNA/DOCUSATE NA (8.6MG/50MG) TAB PO SCH (10:42)
== END 2016-07-08 19:04 | disposition home or self-care (01) | DRG 766 ==
LOC: OBT 08:22 → L-D 08:22 → OBT 10:25 → L-D 10:40 → PP1 21:12
PROVIDERS: ADMIT Obstetrics & Gynecology; ATTEND Obstetrics & Gynecology
PROC: 0UL70ZZ Occlusion of Bilateral Fallopian Tubes, Open Approach (ICD-10-PCS; 2016-07-05)
PROC: 10D00Z1 Extraction of Products of Conception, Low, Open Approach (ICD-10-PCS; principal; 2016-07-05 16:00)
DX: O34.211 Maternal care for low transverse scar from previous cesarean delivery (principal); Z30.2 Encounter for sterilization; Z3A.38 38 weeks gestation of pregnancy; Z37.0 Single live birth
CPT/HCPCS: 85014; 85018; 85025; 85610; 85730; 86592; 86850; 86900; 86901; 87340; 88302; 90715; 94760; 99464; G0463; J1100; J1170; J1200; J1580; J1885; J2274; J2370; J2405; J2590; J3010; J7120

== ENCOUNTER 2016-07-15 17:03 | Emergency (ER) | payer MEDICAID ==
[~2016-07-15] VITALS: Ht 154.9 cm; Wt 81.5 kg
[~2016-07-15 17:03] MED LIST changes: +IBUP800T25 PO; +Oxycodone/Acetamin (5/325) PO
[2016-07-15 17:11] VITALS: Ht 154.9 cm; Wt 81.5 kg
[2016-07-15 18:23] LABS: URINE BLOOD (Dip) POC 3+ (NEGATIVE)
[2016-07-15 18:36] LABS: ADD UMIC YES; URINE BILIRUBIN (Dip) NEGATIVE (NEGATIVE); URINE BLOOD (Dip) 3+ (NEGATIVE); URINE COLOR LT. YELLOW (YELLOW); URINE GLUCOSE (Dip) NEGATIVE (NEGATIVE); URINE KETONES (Dip) NEGATIVE (NEGATIVE); URINE LEUKOCYTE ESTERASE (Dip) 2+ (NEGATIVE); URINE NITRITE (Dip) NEGATIVE (NEGATIVE); URINE TOTAL PROTEIN (Dip) NEGATIVE (NEGATIVE); URINE UROBILINOGEN (Dip) 0.2 E.U./dL (0.1-1.0)
[2016-07-15 18:37] VITALS: BP 141/66; PULSE 75
[2016-07-15 18:55] LABS: BACTERIA,URINE MODERATE; RENAL EPITHELIAL CELLS,URINE MANY; SQUAMOUS EPITHELIAL CELL,UR MODERATE; URINE RBCS 25-50 /HPF (0)
[2016-07-15] MEDS ORDERED: CEPHALEXIN 500 MG CAP PO ONE (19:00)
[2016-07-15 19:07] LABS: ADD SCAN DIFF NO
[2016-07-15 19:09] LABS: BASOPHILS % 0.2 % (0.0-2.0); EOSINOPHILS # 0.3 10^3/ul (0.0-0.5); EOSINOPHILS % 2.6 % (0.0-7.0); HEMOGLOBIN 9.6 g/dl (12.0-16.0); LYMPHOCYTES # 1.6 10^3/ul (0.8-2.9); LYMPHOCYTES % 16.8 % (15.0-51.0); MEAN CORPUSCULAR HEMOGLOBIN 29.1 pg (29.0-33.0); MEAN CORPUSCULAR VOLUME 90.9 fl (82.0-101.0); MEAN PLATELET VOLUME 8.6 fl (7.4-10.4); MONOCYTE # 0.9 10^3/ul (0.3-0.9); MONOCYTES % 9.5 % (0.0-11.0); NEUTROPHIL # 6.7 10^3/ul (1.6-7.5); NEUTROPHILS % 70.1 % (39.0-77.0); PLATELET COUNT 441 10^3/UL (140-415); RED CELL DISTRIBUTION WIDTH 13.9 % (11.5-14.5); WHITE BLOOD COUNT 9.6 10^3/ul (4.8-10.8)
[2016-07-15 19:30] LABS: ALBUMIN 3.8 g/dl (3.3-4.9); ALBUMIN/GLOBULIN RATIO 1.08; BILIRUBIN,INDIRECT 0.1 mg/dl (0-1.1); BILIRUBIN,TOTAL 0.1 mg/dl (0.2-1.3); CALCIUM 8.9 mg/dl (8.4-10.2); CREATININE 0.58 mg/dl (0.44-1.00); TOTAL PROTEIN 7.3 g/dl (6.1-8.1)
[2016-07-15] MEDS ORDERED: CEPH500C PO (20:10)
--- NOTE | 2016-07-15 20:14 | ERD ---
ER Documentation Chief Complaint Date/Time DATE: 07/15/16 TIME: 20:11 Chief Complaint HYPERTENSIVE SENT BY PMD, HAD 07/05/16 HPI This 41-year-old female specimen 10 days . She had a high blood pressure reading at her OB follow-up visit today. He referred her to the ER for further evaluation. Patient denies any headache, vomiting, significant edema. She denies any previous history of hypertension. ROS All systems reviewed and are negative except as per history of present illness. Medications Home Meds Active Scripts Cephalexin* (Cephalexin*) 500 Mg Capsule, 500 MG PO Q6 for 5 Days, #28 CAP Prov:KARLO BARKSDALE MD 07/15/16 [Oxycodone/Acetamin (5/325)] 1 TAB TAB No Conflict Check, 2 TAB PO Q4H Y for PAIN LEVEL 6-10, #30 0 Refills Prov:PREETHI CASTELAN MD 07/07/16 Ibuprofen* (Ibuprofen*) 800 Mg Tablet, 800 MG PO Q8, #30 TAB 0 Refills Prov:PREETHI CASTELAN MD 07/07/16 Reported Medications Vit-Iron Fumarate-FA ( Vitamin Tablet) 1 Each Tablet, 1 TAB PO AM, TAB 02/07/14 Allergies Allergies: Coded Allergies: Penicillins (Verified Allergy, Mild, 06/12/16) amoxicillin (Verified Allergy, Mild, 06/12/16) PMhx/Soc History of Surgery: Yes (C SECTION 12/05/09) Anesthesia Reaction: No Hx Neurological Disorder: No Hx Respiratory Disorders: No Hx Cardiac Disorders: No Hx Psychiatric Problems: No Hx Miscellaneous Medical Probl: No Hx Alcohol Use: No Hx Substance Use: No Hx Tobacco Use: No Physical Exam Vitals Vital Signs Date Time Temp Pulse Resp B/P Pulse Ox O2 Delivery O2 Flow Rate FiO2 07/15/16 18:37 75 141/66 07/15/16 17:11 99.1 85 18 156/67 96 Physical Exam Const: [] Alert, [id number]. Head: Atraumatic Eyes: Normal Conjunctiva ENT: Normal External Ears, Nose and Mouth. Neck: Full range of motion..~ No meningismus. Resp: Clear to auscultation bilaterally Cardio: Regular rate and rhythm, no murmurs Abd: Soft, non tender, non distended. Normal bowel sounds Skin: No petechiae or rashes Back: No midline or flank tenderness Ext: No cyanosis, or edema Neur: Awake and alert. No hyperreflexia, normal gait. Psych: Normal Mood and Affect Result Diagram: 07/15/16185207/15/[id number] Results 24 hrs Laboratory Tests Test 07/15/16 18:19 07/15/16 18:25 07/15/16 18:53 Urine Color LT. YELLOW Urine Clarity SLIGHTLY CLOUDY Urine pH 6.5 Urine Specific [place] 1.010 Urine Ketones NEGATIVE Urine Nitrite NEGATIVE Urine Bilirubin NEGATIVE Urine Urobilinogen 0.2 E.U./dL Urine Leukocyte Esterase 2+ Urine Microscopic RBC 25-50/HPF Urine Microscopic WBC 25-50/HPF Urine Squamous Epithelial Cells MODERATE Urine Renal Epithelial Cells MANY Urine Bacteria MODERATE Urine Hemoglobin 3+ Urine Glucose NEGATIVE% Urine Total Protein NEGATIVE Bedside Urine pH (LAB) 7.0 Bedside Urine Protein (LAB) Negative Bedside Urine Glucose (UA) Negative Bedside Urine Ketones (LAB) Negative Bedside Urine Blood 3+ Bedside Urine Nitrite (LAB) Negative Bedside Urine Leukocyte Esterase (L 3+ White Blood Count 9.610^3/ul Red Blood Count 3.3010^6/ul Hemoglobin 9.6g/dl Hematocrit 30.0% Mean Corpuscular Volume 90.9fl Mean Corpuscular Hemoglobin 29.1pg Mean Corpuscular Hemoglobin Concent 32.0g/dl Red Cell Distribution Width 13.9% Platelet Count 67171^3/UL Mean Platelet Volume 8.6fl Neutrophils % 70.1% Lymphocytes % 16.8% Monocytes % 9.5% Eosinophils % 2.6% Basophils % 0.2% Nucleated Red Blood Cells % 0.0/100WBC Neutrophils # 6.710^3/ul Lymphocytes # 1.610^3/ul Monocytes # 0.910^3/ul Eosinophils # 0.310^3/ul Basophils # 0.010^3/ul Nucleated Red Blood Cells # 0.010^3/ul Sodium Level 138mmol/L Potassium Level 5.0mmol/L Chloride Level 104mmol/L Carbon Dioxide Level 28mmol/L Anion Gap 11 Blood Urea Nitrogen 7mg/dl Creatinine 0.58mg/dl Glucose Level 100mg/dl Calcium Level 8.9mg/dl Total Bilirubin 0.1mg/dl Direct Bilirubin 0.00mg/dl Indirect Bilirubin 0.1mg/dl Aspartate Amino Transf (AST/SGOT) 75IU/L Alanine Aminotransferase (ALT/SGPT) 89IU/L Alkaline Phosphatase 89IU/L Total Protein 7.3g/dl Albumin 3.8g/dl Globulin 3.50g/dl Albumin/Globulin Ratio 1.08 Current Medications Medications (Trade) Dose Ordered Sig/Bee Route PRN Reason Start Time Stop Time Status Last Admin Dose Admin Cephalexin (Keflex) 500 mg ONCE ONCE PO 07/15/16 19:00 07/15/16 19:01 DC 07/15/16 18:53 Procedures/MDM CBC shows anemia with hemoglobin 9.6. No thrombocytopenia. Leukocytes normal. CMP shows minimal elevation of AST and ALT. No additional acute abnormalities. Urine negative for protein. There is positive leukocytes and hemoglobin. Patient was given Keflex 500 mg by mouth. Patient presents with elevated blood pressure at OB clinic today. Repeat blood pressure is 141/66. Patient was amatory [id number] throughout the ED course. Case was discussed with Dr. Poon who is the patient's OB. Given that she is no signs or symptoms to suggest eclampsia which is the primary complaints is advised and further follow-up as an outpatient. Patient has no signs or symptoms to suggest clamps such as headache or vomiting or edema. Patient is advised to drink clear fluids will be treated with Keflex at home instructions for OB follow-up. There is no additional findings to suggest additional postoperative complications, sepsis, acute abdomen. Departure Diagnosis: Primary Impression: Hypertension Hypertension type: essential hypertension Qualified Code: I10 - Essential hypertension Condition: Stable Patient Instructions: Hypertension, To Be Confirmed Additional Instructions: Examinations normal today. See OB this week for further evaluation. Have signs of urinary tract infection will be treated for this. KARLO BARKSDALE MD July 15, 2016 20:14
== END 2016-07-15 20:27 | disposition home or self-care (01) ==
LOC: FTE 17:03
DX: O10.93 Unspecified pre-existing hypertension complicating the puerperium (principal)
CPT/HCPCS: 80053; 81001; 85025; Z7502; Z7610; 81003; 99283

== ENCOUNTER 2016-07-18 19:05 | Observation (INO) | payer MEDICAID ==
[~2016-07-18] VITALS: Ht 154.9 cm; Wt 80.4 kg
[~2016-07-18 19:05] MED LIST changes: +CEPH500C PO
[2016-07-18] MEDS ORDERED: HYDR-906 PO (20:39)
[2016-07-18] MEDS ORDERED: CLIN-73 PO (20:42)
--- NOTE | 2016-07-18 20:52 | ERD ---
ER Documentation Chief Complaint Date/Time DATE: 07/18/16 TIME: 20:48 Chief Complaint c/section incision site wound check, states with purulent discharge HPI 41-year-old female who is probably 3 para 3 status post on July 05, 2016 as well as bilateral tubal ligation comes to the emergency department with a wound that has been draining since yesterday. Patient states that there is a small opening on the left side that occurred yesterday and she describes a clearish to red discharge. Patient reports there is localized pain only, no increased pain suddenly. She denies any fevers or chills. No nausea or vomiting. Patient denies headache, blurred vision, nausea vomiting or right upper quadrant abdominal pain. ROS All systems reviewed and are negative except as per history of present illness. Medications Home Meds Active Scripts Hydrocodone/Acetaminophen (Duff 5-325 Tablet) 1 Each Tablet, 1 TAB PO Q6H Y for PAIN, #15 TAB Prov:ANITA ANGUIANO PA-C 07/18/16 Cephalexin* (Cephalexin*) 500 Mg Capsule, 500 MG PO Q6 for 5 Days, #28 CAP Prov:KARLO BARKSDALE MD 07/15/16 [Oxycodone/Acetamin (5/325)] 1 TAB TAB No Conflict Check, 2 TAB PO Q4H Y for PAIN LEVEL 6-10, #30 0 Refills Prov:PREETHI PICKARD MD 07/07/16 Ibuprofen* (Ibuprofen*) 800 Mg Tablet, 800 MG PO Q8, #30 TAB 0 Refills Prov:PREETHI PICKARD MD 07/07/16 Reported Medications Vit-Iron Fumarate-FA ( Vitamin Tablet) 1 Each Tablet, 1 TAB PO AM, TAB 02/07/14 Allergies Allergies: Coded Allergies: Penicillins (Verified Allergy, Mild, 06/12/16) amoxicillin (Verified Allergy, Mild, 06/12/16) PMhx/Soc History of Surgery: Yes (C SECTION 12/05/09) Anesthesia Reaction: No Hx Neurological Disorder: No Hx Respiratory Disorders: No Hx Cardiac Disorders: No Hx Psychiatric Problems: No Hx Miscellaneous Medical Probl: No Hx Alcohol Use: No Hx Substance Use: No Hx Tobacco Use: No Smoking Status: Never smoker Physical Exam Vitals Vital Signs Date Time Temp Pulse Resp B/P Pulse Ox O2 Delivery O2 Flow Rate FiO2 07/18/16 20:55 98.7 75 20 193/84 98 Room Air 07/18/16 19:21 98.5 88 20 164/75 96 Physical Exam General: Well-developed, well-nourished. The patient appears in no acute distress. HEENT: Head is normocephalic, atraumatic. No scleral icterus. Pupils are equal , round, and reactive. Oral mucous membranes are moist. No pharyngeal erythema. Neck: Supple. Nontender. Lungs: Clear to auscultation. Normal air movement. Heart: Regular rate and rhythm. S1 and S2 are normal. No murmurs, gallops, or rubs. Abdomen: Soft, nontender, nondistended. Bowel sounds are normoactive. C- section site is intact, there is no dehiscence there is a seroma of approximately 1 inch on the left side, there is clear serosanguineous liquid that is draining. There is no erythema, or warmth. Steri-Strips are otherwise intact. Extremities: No clubbing or cyanosis. Normal pulses. Moving extremities x 4. No weakness. Neurologic: Alert and oriented 3. No focal deficits. Skin: Normal turgor. No rash or lesions. Result Diagram: 07/18/16213507/18/[id number] Results 24 hrs Laboratory Tests Test 07/18/16 21:28 07/18/16 21:30 07/18/16 21:36 Bedside Urine pH (LAB) 6.0 Bedside Urine Protein (LAB) 1+ Bedside Urine Glucose (UA) Negative Bedside Urine Ketones (LAB) Negative Bedside Urine Blood 3+ Bedside Urine Nitrite (LAB) Negative Bedside Urine Leukocyte Esterase (L 1+ Urine Color LT. YELLOW Urine Clarity CLEAR Urine pH 6.0 Urine Specific [place] 1.010 Urine Ketones NEGATIVE Urine Nitrite NEGATIVE Urine Bilirubin NEGATIVE Urine Urobilinogen 0.2 E.U./dL Urine Leukocyte Esterase 1+ Urine Microscopic RBC >50/HPF Urine Microscopic WBC 2-5/HPF Urine Epithelial Cells RARE Urine Hemoglobin 3+ Urine Glucose NEGATIVE% Urine Total Protein TRACE White Blood Count 7.210^3/ul Red Blood Count 3.6510^6/ul Hemoglobin 10.4g/dl Hematocrit 32.7% Mean Corpuscular Volume 89.6fl Mean Corpuscular Hemoglobin 28.5pg Mean Corpuscular Hemoglobin Concent 31.8g/dl Red Cell Distribution Width 13.7% Platelet Count 22957^3/UL Mean Platelet Volume 8.5fl Neutrophils % 65.7% Lymphocytes % 20.9% Monocytes % 8.4% Eosinophils % 3.9% Basophils % 0.4% Nucleated Red Blood Cells % 0.0/100WBC Neutrophils # 4.710^3/ul Lymphocytes # 1.510^3/ul Monocytes # 0.610^3/ul Eosinophils # 0.310^3/ul Basophils # 0.010^3/ul Nucleated Red Blood Cells # 0.010^3/ul Prothrombin Time 12.6Sec Prothrombin Time Ratio 1.0 INR International Normalized Ratio 0.94 Activated Partial Thromboplast Time 34.0Sec Sodium Level 143mmol/L Potassium Level 4.2mmol/L Chloride Level 101mmol/L Carbon Dioxide Level 29mmol/L Anion Gap 17 Blood Urea Nitrogen 9mg/dl Creatinine 0.60mg/dl Glucose Level 96mg/dl Calcium Level 9.6mg/dl Total Bilirubin 0.1mg/dl Direct Bilirubin 0.00mg/dl Indirect Bilirubin 0.1mg/dl Aspartate Amino Transf (AST/SGOT) 95IU/L Alanine Aminotransferase (ALT/SGPT) 86IU/L Alkaline Phosphatase 91IU/L Total Protein 8.0g/dl Albumin 4.1g/dl Globulin 3.90g/dl Albumin/Globulin Ratio 1.05 Current Medications Medications (Trade) Dose Ordered Sig/Bee Route PRN Reason Start Time Stop Time Status Last Admin Dose Admin Labetalol HCl (Labetalol) 10 mg ONCE ONCE IV 07/18/16 23:00 07/18/16 23:01 DC 07/18/16 23:26 Procedures/MDM ED course: Wound care is was done, Steri-Strips were applied to the left side. Patient's blood pressure was rechecked, it was still elevated, she was done place in the bed and labs and urine were obtained. Patient was kept on a monitor and given labetalol 10 mg IV was given. I spoke with on-call laborist, Dr Melton, who advised that we consult medicine at this point as well as her OB Dr Pickard. MDM: 41-year-old female status post as well as bilateral tubal ligation comes in the emergency department for wound check, there is a small seroma there is no dehiscence of the wound. Subsequently, her blood pressure was checked and it was elevated in the emergency room. At this time she has elevated blood pressure, and patient denies any history of prior hypertension, elevated blood pressure. Concern is for possible preeclampsia, patient's history and lab findings were presented to Dr Sheehan. Dr. Sheehan agrees that the patient should be admitted, telemetry for further observation. platelets are mildly elevated, there is anemia and mild elevation of AST and ALT. In terms of the wound, there is no evidence of cellulitis. When pressing on the wound there is a yellowish discharge that did appear, she is currently taking Keflex, for UTI. There is no evidence of dehiscence, there is a small opening likely a seroma. Departure Diagnosis: Primary Impression: Encounter for wound re-check Additional Impression: Hypertension Condition: Stable Patient Instructions: Post Op Wound Check, Pain ANITA ANGUIANO PA-C July 18, 2016 20:52
[2016-07-18 21:25] LABS: URINE BLOOD (Dip) POC 3+ (NEGATIVE)
[2016-07-18 21:54] LABS: ADD SCAN DIFF NO
[2016-07-18 21:55] LABS: ADD UMIC YES; URINE BILIRUBIN (Dip) NEGATIVE (NEGATIVE); URINE BLOOD (Dip) 3+ (NEGATIVE); URINE COLOR LT. YELLOW (YELLOW); URINE GLUCOSE (Dip) NEGATIVE (NEGATIVE); URINE KETONES (Dip) NEGATIVE (NEGATIVE); URINE LEUKOCYTE ESTERASE (Dip) 1+ (NEGATIVE); URINE NITRITE (Dip) NEGATIVE (NEGATIVE); URINE TOTAL PROTEIN (Dip) TRACE (NEGATIVE); URINE UROBILINOGEN (Dip) 0.2 E.U./dL (0.1-1.0)
[2016-07-18 21:57] LABS: BASOPHILS % 0.4 % (0.0-2.0); EOSINOPHILS # 0.3 10^3/ul (0.0-0.5); EOSINOPHILS % 3.9 % (0.0-7.0); HEMATOCRIT 32.7 % (37.0-47.0); HEMOGLOBIN 10.4 g/dl (12.0-16.0); LYMPHOCYTES # 1.5 10^3/ul (0.8-2.9); LYMPHOCYTES % 20.9 % (15.0-51.0); MEAN CORPUSCULAR HEMOGLOBIN 28.5 pg (29.0-33.0); MEAN CORPUSCULAR HGB CONC 31.8 g/dl (32.0-37.0); MEAN CORPUSCULAR VOLUME 89.6 fl (82.0-101.0); MEAN PLATELET VOLUME 8.5 fl (7.4-10.4); MONOCYTE # 0.6 10^3/ul (0.3-0.9); MONOCYTES % 8.4 % (0.0-11.0); NEUTROPHIL # 4.7 10^3/ul (1.6-7.5); NEUTROPHILS % 65.7 % (39.0-77.0); PLATELET COUNT 492 10^3/UL (140-415); RED BLOOD COUNT 3.65 10^6/ul (4.20-5.40); RED CELL DISTRIBUTION WIDTH 13.7 % (11.5-14.5); WHITE BLOOD COUNT 7.2 10^3/ul (4.8-10.8)
[2016-07-18 22:01] LABS: URINE RBCS >50 /HPF (0)
[2016-07-18 22:09] LABS: ALBUMIN 4.1 g/dl (3.3-4.9); POTASSIUM 4.2 mmol/L (3.5-5.1)
[2016-07-18 22:10] LABS: INR 0.94; PROTIME 12.6 Sec (12.2-14.2)
[2016-07-18 22:11] LABS: BILIRUBIN,INDIRECT 0.1 mg/dl (0-1.1); BILIRUBIN,TOTAL 0.1 mg/dl (0.2-1.3); CREATININE 0.6 mg/dl (0.44-1.00)
[2016-07-18 22:12] LABS: ALBUMIN/GLOBULIN RATIO 1.05
[2016-07-18 22:13] LABS: CALCIUM 9.6 mg/dl (8.4-10.2)
[2016-07-18] MEDS ORDERED: LABETALOL HCL 20MG INJ IV ONE (23:00)
--- NOTE | 2016-07-18 23:50 | QN ---
Documentation Comment HPI: The patient is 41-year-old female, had a about 13 days ago, was here for wound check. She was noted to have high blood pressure and headache, proteinuria and acute cystitis. She was treated with labetalol 10 mg IV for acute accelerated hypertension and Rocephin 1 g IV for acute cystitis PE Const: No acute distress. Head: Atraumatic. Eyes: Normal Conjunctiva. ENT: Normal External Ears, Nose and Mouth. Neck: Full range of motion. No meningismus. Resp: Clear to auscultation bilaterally. Cardio: Regular rate and rhythm, no murmurs. Abd: Soft, non distended, normal bowel sounds, non tender. Lower abdominal wound is healing well, no erythema, no discharge Skin: No petechiae or rashes. Back: No midline or flank tenderness. Ext: No cyanosis, or edema. Neur: Awake and alert. No focal deficit Psych: Normal Mood and Affect. Consultation: She was evaluated by the on-call community health nurse supervisor Dr. Melton who recommended admission for blood pressure control and 24 hour observation MDM. The patient is a 41-year-old female, presenting with elevated blood pressure The differential diagnoses considered include but are not limited to preeclampsia, HELLP syndrome, new onset hypertension Diagnostic impression: #1 elevated blood pressure #2 acute cystitis Disposition: I discussed the findings with the patient. I discussed the patient with the on-call hospitalist Dr. Saxena who was made aware of the lab, the treatment, the patient condition. The patient is admitted to telemetry for 24 hours observation DARIEN ZALDIVAR MD July 18, 2016 23:49
[2016-07-19] VITALS (10 sets, daily range): BP systolic 138–184; BP diastolic 65–74; PULSE 65–80; RESP 18; TEMP 98.9; Ht 154.9 cm; Wt 80.4 kg
[2016-07-19] MEDS ORDERED: CEFTRIAXONE 1 GM/50 ML (PMX) 50 ML IVPB ONE (01:00)
[2016-07-19] MEDS ORDERED: NACL 0.9% 3 ML SYG IV SCH (02:00)
[2016-07-19] MEDS ORDERED: ONDANSETRON 4 MG INJ IV PRN (02:00)
[2016-07-19] MEDS ORDERED: ACETAMINOPHEN 325 MG TAB PO PRN (02:00)
--- NOTE | 2016-07-19 03:33 | HP ---
Date/Time of Note Date/Time of Note DATE: 07/19/16 TIME: 03:17 Assessment/Plan VTE Prophylaxis VTE Prophylaxis Intervention: LMWH Assessment/Plan Chief Complaint/Hosp Course This is a 41-year-old female being admitted to the [facility] floor for: #1 elevated blood pressures: Patient denies any previous history of being treated for elevated high blood pressures though she was noted to have some elevated readings during her third trimester. At the current time we will continue to monitor the patient's blood pressures. She also reports that she has not slept much since delivering her third child which also could be contributing to her blood pressure this time. Patient also has been on Percocets for pain control after the and the acetaminophen could also be a cause. Will monitor the patient's blood pressures. She did receive labetalol IV in the ER. If indeed she continues to have elevated readings will likely send her home on p.o. labetalol. #2 anemia: This has continued to improve since her on the ninth will continue to follow. In the ED documentation it was recommended to consult her OB doctor Dr Pickard, we will consider this in the a.m. after evaluating her. #3 elevated LFTs: This possibly could related to her Percocet use she denies any right upper quadrant pain. No history of HELLP syndrome and currently her bilirubin is within normal limits and her platelets are within normal limits as well. Will order right upper quadrant ultrasound to evaluate the liver. In order an acetaminophen level. #4 DVT and GI prophylaxis: Lovenox, famotidine Problems: HPI/ROS Admit Date/Time Admit Date/Time July 19, 2016 at 00:25 Hx of Present Illness Chief complaint: wound open This is a 41-year-old female who came in for a wound check of her wound. Patient patient has Steri-Strips applied over wound. At that time it was also noted that patient had elevated blood pressure above the 180s systolic. Patient also stated that she had a mild headache at that time. Upon further questioning patient states that after delivering approximately 13 days ago she has not had much sleep because she is taking care of her as well as her 2 other children. She states that the most sleep she gets at 2 hours. She currently denies any changes in her vision. She denies any dizziness or shortness of breath or unstable gait or focal weakness. During her she did have some slight elevated blood pressure however she was not treated with any medications. She was not on any previous hypertensive medications prior to her . Of note patient's UA did show positive leukoesterase. She did state that she was told this as well before and she was started on an antibiotic though she was not experiencing any symptoms. She did receive ceftriaxone in the ED. Allergies: Penicillin Medications: See PARAG MALCOLM Const: As per HPI Eyes : No pain discharge or redness or change in visual acuity ENT: No pain, sore throat, congestion, congestion, dysphagia or discharge Respiratory: No shortness of breath, cough, sputum, wheezing, or pleuritic pain Cardiovascular: No chest pain, palpitation, PND, or edema GI : no change in appetite, abdominal pain, nausea, vomiting, diarrhea, constipation, or change in the color his stool Genitourinary: No dysuria, hematuria, flank pain , discharge or CVA tenderness Musculoskeletal: No joint pain, back pain, neck pain, restricted range of motion in neck or joints Skin: As per HPI Neuro: No headache, dizziness, syncope, seizure, focal weakness Endocrine: No polyuria, polydipsia, temperature intolerance Psych: No hallucination, depression, anxiety or suicidal ideation PMH/Family/Social Past Medical History Medical History: no pertinent history Past Surgical History 3 Family History Significant Family History: hypertension (Mom) Social History Alcohol Use: none Smoking Status: Never smoker Drug Use: none Exam/Review of Systems Vital Signs Vitals Vital Signs Date Time Temp Pulse Resp B/P Pulse Ox O2 Delivery O2 Flow Rate FiO2 07/19/16 02:06 68 143/67 07/19/16 01:36 98.3 18 98 Room Air Exam Exam General: This is a pleasant 41-year-old female who is laying in bed comfortably. HEENT: Atraumatic, normocephalic. The pupils are equal, round and reactive. Extraocular motor are intact Neck: Supple with full range of motion. No rigidity or meningismus Chest: Nontender Lungs: Clear to auscultation bilaterally no crackles rales or wheezing Heart: Normal S1-S2, Regular rhythm and rate. No murmur, S3, or S4 Abdomen: Soft , nontender, nondistended , bowel sounds are present. No guarding no rebound tenderness , surgical wound clean dry and intact Steri- Strips visible Extremities: Normal to inspection, no edema no cyanosis Neurologic: Normal mental status, speech normal, cranial nerves II through XII are intact, motor and sensory are intact, no focal weakness Labs Result Diagram: 07/18/16213507/[id number] Medications Medications Current Medications Sodium Chloride (NS) 1,000 ml @ 75 mls/hr [id number] IV ; Start 07/19/16 at 01:38 Ondansetron HCl (Zofran Inj) 4 mg Q6H PRN IV NAUSEA AND/OR VOMITING; Start at 02:00 Acetaminophen (Tylenol Tab) 650 mg Q6H PRN PO PAIN LEVEL 1-3 OR FEVER; Start at 02:00 Famotidine (Pepcid) 20 mg Q12 PO ; Start 07/19/16 at 09:00 Enoxaparin Sodium (Lovenox) 40 mg DAILY SC ; Start 07/19/16 at 09:00 JANET ABREU July 19, 2016 03:32
[2016-07-19] MEDS: SOD CHLORIDE 0.9% 1,000 ML IV SCH ×2 (05:38→14:58)
--- NOTE | 2016-07-19 07:28 | CONS ---
DATE OF ADMISSION: 07/18/2016 DATE OF CONSULTATION: CHIEF COMPLAINT: Admitted through the emergency room for wound check. HISTORY OF PRESENT ILLNESS: This is a 41-year-old , 3, para 3, status post sec tion on 07/05/2016, with an incidental finding of a blood pressure of 190/100. the patient expresse d that she has a headache, no nausea, no vomiting, no other associated symptoms. PAST MEDICAL HISTORY: Denies. PAST SURGICAL HISTORY: Three previous sections. ALLERGIES: NKDA. PHYSICAL EXAMINATION: VITAL SIGNS: Stable. GENERAL EXAM: Normal. ABDOMEN: The incision is bleeding from a wound separation in the subcutaneous tissue. There is sig n of infection. Reflexes are normal. EXTREMITIES: Normal. Blood pressure is 190/100. ASSESSMENT AND PLAN: Given the fact that the patient is , blood pressure is rising and al so increased liver enzymes, I do recommend that the patient get admitted to the telemetry unit, have a hospitalist consult, 24-hour might be helpful. Blood pressure controlling. Wound instruct ions discussed with the patient. Please call the laborist phone at [phone] Poon for any [employer] i ssues. Thank you for consulting with us. Dictated By: HANSA LEON/NOE Conf#: [id number] DID#: [id number]
[2016-07-19] MEDS ORDERED: FAMOTIDINE 20 MG TAB PO SCH (09:00)
[2016-07-19] MEDS ORDERED: ENOXAPARIN 40 MG/0.4 ML SYG SC SCH (09:00)
[2016-07-19] MEDS ORDERED: NITROFURANTOIN (SR) 100 MG CAP PO SCH (09:00)
--- NOTE | 2016-07-19 12:34 | RADRPT ---
PROCEDURE: Right upper quadrant abdominal ultrasound. CLINICAL INDICATION: Abdominal pain, abnormal liver function tests TECHNIQUE: Fischer scale and color doppler ultrasound images of the right upper quadrant. COMPARISON: None FINDINGS: Pancreas: Visualized portions appear of normal echogenicity, no focal lesions. Liver: Morphology: The right lobe of the liver is elongated measuring up to 17.2 cm which may reflect Radha del's lobe configuration. Echogenicity: Increased echogenicity of the liver parenchyma suggestive of hepatic steatosis. Focal lesions: None. Main portal vein: Patent with hepatopetal flow. Biliary System: Gallbladder is contracted but otherwise normal in appearance. No gallstones seen. No intrahepatic biliary dilatation. Common bile duct measures 4.0 mm in maximal dimension. Kidneys: Right 10.4 cm in length. Right renal cortical thickness is preserved. Normal echogenicity. No hydronephrosis. No renal calculi. No focal lesions. No free fluid identified. IMPRESSION: Normal gallbladder without gallstones. Increased echogenicity of the liver parenchyma suggestive of hepatic steatosis. RPTAT: AADD .Shady Hay MD, MD Date Time Electronically viewed and signed by .Shady Hay MD, on 07/19/2016 12:33 .B/
[2016-07-19 14:17] LABS: ADD SCAN DIFF NO
[2016-07-19 14:19] LABS: BASOPHILS % 0.3 % (0.0-2.0); EOSINOPHILS # 0.3 10^3/ul (0.0-0.5); EOSINOPHILS % 4.4 % (0.0-7.0); HEMOGLOBIN 10.4 g/dl (12.0-16.0); LYMPHOCYTES # 1.6 10^3/ul (0.8-2.9); LYMPHOCYTES % 23.1 % (15.0-51.0); MEAN CORPUSCULAR HEMOGLOBIN 28.4 pg (29.0-33.0); MEAN CORPUSCULAR HGB CONC 31.5 g/dl (32.0-37.0); MEAN CORPUSCULAR VOLUME 90.2 fl (82.0-101.0); MEAN PLATELET VOLUME 8.9 fl (7.4-10.4); MONOCYTE # 0.6 10^3/ul (0.3-0.9); MONOCYTES % 8.4 % (0.0-11.0); NEUTROPHIL # 4.3 10^3/ul (1.6-7.5); NEUTROPHILS % 63.2 % (39.0-77.0); PLATELET COUNT 488 10^3/UL (140-415); RED BLOOD COUNT 3.66 10^6/ul (4.20-5.40); RED CELL DISTRIBUTION WIDTH 13.8 % (11.5-14.5); WHITE BLOOD COUNT 6.8 10^3/ul (4.8-10.8)
[2016-07-19] MEDS ORDERED: MACBID PO (14:24)
[2016-07-19] MEDS ORDERED: NIFE30TA2 PO (14:24)
[2016-07-19 14:29] LABS: ALBUMIN 3.8 g/dl (3.3-4.9); ALBUMIN/GLOBULIN RATIO 1.05; CALCIUM 9.8 mg/dl (8.4-10.2); CREATININE 0.59 mg/dl (0.44-1.00); MAGNESIUM 2.1 mg/dl (1.7-2.5); POTASSIUM 4.4 mmol/L (3.5-5.1); TOTAL PROTEIN 7.4 g/dl (6.1-8.1)
[2016-07-19] MEDS ORDERED: NIFEdipine (XL) 30 MG TAB PO SCH ×2 (14:30)
[2016-07-19] MEDS ORDERED: CEPH500C PO (15:35)
--- NOTE | 2016-07-19 17:31 | DS ---
Date/Time of Note Date/Time of Note DATE: 07/19/16 TIME: 17:26 Discharge Summary Admission/Discharge Info Admit Date/Time July 18, 2016 at 23:43 Discharge Date/Time Final Diagnosis 1. Uncontrolled hypertension: Improved 2. Elevated LFTs secondary to fatty liver: Stable 3. Probably UTI 4. Mild incision site infection 5. Recent section . Patient Condition: Stable Consults Obstetrics:HANSA NIETO MD . Hx of Present Illness Chief complaint: wound open This is a 41-year-old female who came in for a wound check of her wound. Patient patient has Steri-Strips applied over wound. At that time it was also noted that patient had elevated blood pressure above the 180s systolic. Patient also stated that she had a mild headache at that time. Upon further questioning patient states that after delivering approximately 13 days ago she has not had much sleep because she is taking care of her as well as her 2 other children. She states that the most sleep she gets at 2 hours. She currently denies any changes in her vision. She denies any dizziness or shortness of breath or unstable gait or focal weakness. During her she did have some slight elevated blood pressure however she was not treated with any medications. She was not on any previous hypertensive medications prior to her . Of note patient's UA did show positive leukoesterase. She did state that she was told this as well before and she was started on an antibiotic though she was not experiencing any symptoms. She did receive ceftriaxone in the ED. Allergies: Penicillin Medications: See [facility] Hospital Course The patient was admitted, and started on IV antibiotics for urinary tract infection, IV hyper antihypertensives for blood pressure control, and wound care and management. She had a liver ultrasound to evaluate her transaminitis and this just showed fatty liver. She is feels a lot better now her blood pressure has come down nicely and she is requesting to be discharged. I reviewed the wound and she still having some oozing, we vault obtained wound cultures, but at patient's request will discharge her home and she will follow- up with her primary care physician if the wound becomes red or the cultures become smelling. She is being discharged with empiric antibiotics. She is also to try to return if she has any fever. Comorbidities were also aggressively managed as per Med records. Patient at this time has been evaluated and examined in detail and is assessed to be in stable condition and ready for discharge. She was also recommended to maintain a low-cholesterol low-fat diet because of her fatty liver. . Home Meds Active Scripts Cephalexin* (Cephalexin*) 500 Mg Capsule, 500 MG PO Q6, #28 CAP Prov:DERICK SHEARER. 07/19/16 Nifedipine (Procardia Xl) 30 Mg Tab.er.24, 30 MG PO DAILY for 30 Days, TAB 3 Refills Prov:DERICK SHEARERLashay 07/19/16 [Oxycodone/Acetamin (5/325)] 1 TAB TAB No Conflict Check, 2 TAB PO Q4H Y for PAIN LEVEL 6-10, #30 0 Refills Prov:PREETHI CASTELAN MD 07/07/16 Ibuprofen* (Ibuprofen*) 800 Mg Tablet, 800 MG PO Q8, #30 TAB 0 Refills Prov:PREETHI CASTELAN MD 07/07/16 Reported Medications Vit-Iron Fumarate-FA ( Vitamin Tablet) 1 Each Tablet, 1 TAB PO AM, TAB 02/07/14 Discontinued Scripts Cephalexin* (Cephalexin*) 500 Mg Capsule, 500 MG PO Q6 for 5 Days, #28 CAP Prov:KARLO BARKSDALE MD 07/15/16 Follow-up Plan Patient is to follow-up with her on commercial leasing agent within a few days to ensure continued improvement of her wound site infection, and to ensure that her blood pressure remains controlled. Primary Care Provider Hugh Mays MD Time spent on discharge: > 30 minutes Pending Labs Laboratory Tests Test 07/18/16 21:28 07/18/16 21:30 07/18/16 21:36 07/19/16 10:10 Bedside Urine pH (LAB) 6.0 (5.0-8.5) Bedside Urine Protein (LAB) 1+ (NEGATIVE) Bedside Urine Glucose (UA) Negative (NEGATIVE) Bedside Urine Ketones (LAB) Negative (NEGATIVE) Bedside Urine Blood 3+ (NEGATIVE) Bedside Urine Nitrite (LAB) Negative (NEGATIVE) Bedside Urine Leukocyte Esterase (L 1+ (NEGATIVE) Urine Color LT. YELLOW (YELLOW) Urine Clarity CLEAR (CLEAR) Urine pH 6.0 (5.0-9.0) Urine Specific [place] 1.010 (1.003-1.030) Urine Ketones NEGATIVE (NEGATIVE) Urine Nitrite NEGATIVE (NEGATIVE) Urine Bilirubin NEGATIVE (NEGATIVE) Urine Urobilinogen 0.2 E.U./dL (0.1-1.0) Urine Leukocyte Esterase 1+ (NEGATIVE) Urine Microscopic RBC >50/HPF (0) Urine Microscopic WBC 2-5/HPF (0) Urine Epithelial Cells RARE Urine Hemoglobin 3+ (NEGATIVE) Urine Glucose NEGATIVE% (NEGATIVE) Urine Total Protein TRACE (NEGATIVE) White Blood Count 7.210^3/ul (4.8-10.8) 6.810^3/ul (4.8-10.8) Red Blood Count 3.6510^6/ul (4.20-5.40) 3.6610^6/ul (4.20-5.40) Hemoglobin 10.4g/dl (12.0-16.0) 10.4g/dl (12.0-16.0) Hematocrit 32.7% (37.0-47.0) 33.0% (37.0-47.0) Mean Corpuscular Volume 89.6fl (82.0-101.0) 90.2fl (82.0-101.0) Mean Corpuscular Hemoglobin 28.5pg (29.0-33.0) 28.4pg (29.0-33.0) Mean Corpuscular Hemoglobin Concent 31.8g/dl (32.0-37.0) 31.5g/dl (32.0-37.0) Red Cell Distribution Width 13.7% (11.5-14.5) 13.8% (11.5-14.5) Platelet Count 81048^3/UL (140-415) 44063^3/UL (140-415) Mean Platelet Volume 8.5fl (7.4-10.4) 8.9fl (7.4-10.4) Neutrophils % 65.7% (39.0-77.0) 63.2% (39.0-77.0) Lymphocytes % 20.9% (15.0-51.0) 23.1% (15.0-51.0) Monocytes % 8.4% (0.0-11.0) 8.4% (0.0-11.0) Eosinophils % 3.9% (0.0-7.0) 4.4% (0.0-7.0) Basophils % 0.4% (0.0-2.0) 0.3% (0.0-2.0) Nucleated Red Blood Cells % 0.0/100WBC (0.0-0.0) 0.0/100WBC (0.0-0.0) Neutrophils # 4.710^3/ul (1.6-7.5) 4.310^3/ul (1.6-7.5) Lymphocytes # 1.510^3/ul (0.8-2.9) 1.610^3/ul (0.8-2.9) Monocytes # 0.610^3/ul (0.3-0.9) 0.610^3/ul (0.3-0.9) Eosinophils # 0.310^3/ul (0.0-0.5) 0.310^3/ul (0.0-0.5) Basophils # 0.010^3/ul (0.0-0.1) 0.010^3/ul (0.0-0.1) Nucleated Red Blood Cells # 0.010^3/ul (0.0-0.0) 0.010^3/ul (0.0-0.0) Prothrombin Time 12.6Sec (12.2-14.2) Prothrombin Time Ratio 1.0 INR International Normalized Ratio 0.94 Activated Partial Thromboplast Time 34.0Sec (25.0-35.0) Sodium Level 143mmol/L (135-144) 139mmol/L (135-144) Potassium Level 4.2mmol/L (3.5-5.1) 4.4mmol/L (3.5-5.1) Chloride Level 101mmol/L (97-110) 102mmol/L (97-110) Carbon Dioxide Level 29mmol/L (21-31) 28mmol/L (21-31) Anion Gap 17 (8-16) 13 (8-16) Blood Urea Nitrogen 9mg/dl (7-20) 8mg/dl (7-20) Creatinine 0.60mg/dl (0.44-1.00) 0.59mg/dl (0.44-1.00) Glucose Level 96mg/dl (70-220) 112mg/dl (70-220) Calcium Level 9.6mg/dl (8.4-10.2) 9.8mg/dl (8.4-10.2) Total Bilirubin 0.1mg/dl (0.2-1.3) 0.0mg/dl (0.2-1.3) Direct Bilirubin 0.00mg/dl (0.00-0.20) 0.00mg/dl (0.00-0.20) Indirect Bilirubin 0.1mg/dl (0-1.1) 0.0mg/dl (0-1.1) Aspartate Amino Transf (AST/SGOT) 95IU/L (15-46) 94IU/L (15-46) Alanine Aminotransferase (ALT/SGPT) 86IU/L (13-69) 85IU/L (13-69) Alkaline Phosphatase 91IU/L (42-121) 77IU/L (42-121) Total Protein 8.0g/dl (6.1-8.1) 7.4g/dl (6.1-8.1) Albumin 4.1g/dl (3.3-4.9) 3.8g/dl (3.3-4.9) Globulin 3.90g/dl (1.3-3.2) 3.60g/dl (1.3-3.2) Albumin/Globulin Ratio 1.05 1.05 Magnesium Level 2.1mg/dl (1.7-2.5) Acetaminophen Level < 10.0ug/ml (10.0-30.0) DERICK SHEARER July 19, 2016 17:31
== END 2016-07-19 17:53 | disposition home or self-care (01) ==
LOC: FTE 19:05 → MS4 23:43
PROVIDERS: ADMIT Family Medicine; ATTEND Family Medicine
DX: I10 Essential (primary) hypertension (principal); K76.0 Fatty (change of) liver, not elsewhere classified; O86.0 Infection of obstetric surgical wound; D64.9 Anemia, unspecified; Z82.49 Family history of ischemic heart disease and other diseases of the circulatory system
CPT/HCPCS: 36415; 76705; 80053; 80306; 81001; 83735; 85025; 85610; 85730; 87086; 96374; 96375; J0696; J7030; Z7500; Z7502; Z7610; 81003; G0378

== ENCOUNTER 2018-02-24 01:40 | Emergency (ER) | END 2018-02-24 05:13 | disposition home or self-care (01) ==